=== PATIENT | female | born 1950 | race Caucasian/White ===

== ENCOUNTER 2022-03-04 08:43 | Outpatient (CLI) | payer OTHER, SELFPAY ==
[2022-03-04 14:29] LABS: Albumin* 4.2 g/dL (3.3-5.0); Chloride* 105 mmol/L (96-114); Sodium* 138 mmol/L (135-149)
[2022-03-04 14:32] LABS: Alanine Aminotransferase* 45 U/L (4-35); Alkaline Phosphatase* 65 U/L (40-150); Aspartate Amino Transferase* 40 U/L (12-35); Bilirubin Total* 0.5 mg/dL (0.1-1.5); Blood Urea Nitrogen* 21 mg/dL (7-30); Carbon Dioxide* 29 mmol/L (20-32); Cholesterol* 220 mg/dL (90-199); Creatinine* 0.7 mg/dL (0.5-1.5); Estimated Glomerular Filt Rate 92 ml/min; Glucose* 104 mg/dL (60-115); Total Protein* 7.3 g/dL (6.0-8.3)
[2022-03-04 14:33] LABS: Calcium* 9.5 mg/dL (8.4-10.6); HDL Cholesterol* 94 mg/dL (>=50); LDL Cholesterol Calculated 105 mg/dL (<100); Triglycerides* 106 mg/dL (40-149)
== END 2022-03-04 08:44 | disposition home or self-care (01) ==
PROVIDERS: PCP Emergency Medicine; Visit Provider Emergency Medicine
DX: Z00.00 Encounter for general adult medical examination without abnormal findings (principal); E78.5 Hyperlipidemia, unspecified; I10 Essential (primary) hypertension; M85.80 Other specified disorders of bone density and structure, unspecified site
CPT/HCPCS: 80053; 80061

== ENCOUNTER 2022-05-29 11:08 | Outpatient (CLI) | payer OTHER, SELFPAY ==
[2022-05-29 12:27] LABS: Alanine Aminotransferase* 25 U/L (4-35); Aspartate Amino Transferase* 27 U/L (12-35); Cholesterol* 168 mg/dL (90-199); Triglycerides* 83 mg/dL (40-149)
[2022-05-29 12:28] LABS: HDL Cholesterol* 86 mg/dL (>=50); LDL Cholesterol Calculated 65 mg/dL (<100)
== END 2022-05-29 11:09 | disposition home or self-care (01) ==
PROVIDERS: PCP Emergency Medicine; Visit Provider Emergency Medicine
DX: E78.5 Hyperlipidemia, unspecified (principal)
CPT/HCPCS: 80061; 84450; 84460

== ENCOUNTER 2022-10-13 12:05 | Outpatient (CLI) | payer OTHER, SELFPAY | END 2022-10-13 12:06 | disposition home or self-care (01) | LOC: LKVREF 12:07 | PROVIDERS: PCP Emergency Medicine; Visit Provider Emergency Medicine | DX: Z01.818 Encounter for other preprocedural examination (principal) | CPT/HCPCS: 80048 ==

== ENCOUNTER 2023-02-18 08:42 | Outpatient (CLI) | payer OTHER, SELFPAY | END 2023-02-18 08:43 | disposition home or self-care (01) | PROVIDERS: PCP Emergency Medicine; Visit Provider Emergency Medicine | DX: Z00.00 Encounter for general adult medical examination without abnormal findings (principal); I10 Essential (primary) hypertension; E78.5 Hyperlipidemia, unspecified; M85.9 Disorder of bone density and structure, unspecified; I63.81 Other cerebral infarction due to occlusion or stenosis of small artery | CPT/HCPCS: 80053; 80061; 82306 ==

== ENCOUNTER 2023-03-10 13:18 | Outpatient (CLI) | payer OTHER, SELFPAY ==
--- NOTE | 2023-03-10 13:30 | CRLHL7_ITS ---
For Patients: As a result of the Century Cures Act, medical imaging exams and procedure reports are released immediately into your electronic medical record. You may view this report before your referring provider. If you have questions, please contact your health care provider. DXA BONE MINERAL DENSITY STUDY Reason for exam: Low bone density. Bilateral hip replacement. Current height (in): 66. Weight (lb): 180. Menopause age: 54. Ethnicity: White. 1. Have you had a previous hip or vertebral fracture? No. 2. Have you had any fractures during your adult life which did not result from significant trauma (e.g., auto accident)? Yes. 3. Did either of your parents have a hip fracture? No. 4. Do you smoke? No. 5. Have you ever taken Glucocorticoids? No. 6. Do you have rheumatoid arthritis? No. 7. Do you have secondary osteoporosis? No. 8. Do you drink 3 or more alcoholic drinks per day? No. 9. Are you being treated for osteoporosis? No. 10. Have you ever taken any of the following medications: Actonel, Evista, Fosamax, Miacalcin, Reclast, Boniva, Forteo, HRT (i.e. estrogen/hormone therapy), Protelos, Prolia, Vitamin D, Calcium, other ??? please specify. ANSWER: Yes, vitamin D, calcium. 11. Do you have any of the following medical conditions: Anorexia or bulimia, asthma or emphysema, end stage renal disease, hyperparathyroidism, any seizure disorders, cancer, inflammatory bowel diseases, hysterectomy, other ??? please specify. ANSWER: Yes, hysterectomy. 12. What was your maximum height (inches)? 66. 13. Do you perform weight bearing exercise regularly? No. 14. Do you regularly consume dairy products? Yes. 15. Do you drink caffeinated beverages? Yes. 16. At what age did your period start? 14. 17. Are you premenopausal? No. 18. How many full term pregnancies have you had? 3. 19. Have you ever missed your period for more than 6 months in a row (not including or menopause)? No. TECHNIQUE: Bone mineral density study was performed using the [employer]. FINDINGS: The results of the study expressed as bone mineral density (BMD) are as follows: Lumbar spine L1 to L4: BMD: 0.977 g/cm2. T-score: -0.6. Z-score: 1.6. Radius Left 33%: BMD: 0.721 g/cm2. T-score: 0.4. Z-score: 2.7. Right 33%: BMD: 0.743 g/cm2. T-score: 0.8. Z-score: 3.1. IMPRESSION: Normal bone mineralization of the forearms and lumbar spine are within normal limits. No osteopenia or osteoporosis. *Comparison exams done prior to 12/2019 were performed on different unit, [employer]. Navdeep Moon M.D. Diagnostic/Nuclear Medicine Radiologist [email or web address] ARI/Dictated by: Navdeep Moon MD @ 03/11/2023 8:31:00 AM (Electronically Signed)
--- NOTE | 2023-03-10 14:00 | CRLHL7_ITS ---
For Patients: As a result of the Cures Act, medical imaging exams and procedure reports are released immediately into your electronic medical record. You may view this report before your referring provider. If you have questions, please contact your health care provider. BILATERAL CAROTID ULTRASOUND 03/10/2023 CLINICAL HISTORY: Cerebral infarction, ? occlusion or stenosis. TECHNIQUE: The carotid circulations and the vertebral arteries in the neck were examined with mistry-scale ultrasound, color-flow and Doppler spectral analysis. Degrees of stenosis were determined using SRU 2002 Consensus Panel Criteria. FINDINGS: There is a small amount of plaque in the left carotid bulb. There was antegrade blood flow demonstrated within the vertebral arteries and the subclavian arteries demonstrated a normal triphasic waveform. The spectral Doppler tracings of the common carotid, internal and external carotid arteries demonstrate no abnormal turbulence or spectral broadening. There was no significant elevation of peak systolic blood flow which would indicate a hemodynamically-significant stenosis by NASCET criteria. The ICA/CCA peak systolic velocity ratio measures 0.7 on the right and 0.8 on the left. PEAK SYSTOLIC VELOCITY RIGHT: Subclavian Artery: 178. Distal CCA: 108/31. Mid CCA: 104/24. Prox ICA: 77/27. Mid ICA: 74/27. Dist ICA: 65/21. ICA/CCA Ratio: 0.7. Vertebral Artery: Antegrade, 72/19. LEFT: Subclavian Artery: 108. Distal CCA: 108/32. Mid CCA: 98/26. Prox ICA: 89/26. Mid ICA: 87/31. Dist ICA: 77/19. ICA/CCA Ratio: 0.8 Vertebral Artery: Antegrade, 75/23. IMPRESSION: No hemodynamically significant stenosis in the internal carotid bulbs bilaterally. Marline Johnson M.D. Diagnostic/Breast Radiologist [email or web address] LIDIA/[email or web address] / frederick/Dictated by: Marline Johnson MD @ 03/13/2023 9:10:00 AM (Electronically Signed)
== END 2023-03-10 13:19 | disposition home or self-care (01) ==
PROVIDERS: PCP Emergency Medicine; Visit Provider Emergency Medicine
DX: M85.9 Disorder of bone density and structure, unspecified (principal); I63.81 Other cerebral infarction due to occlusion or stenosis of small artery
CPT/HCPCS: 77080; 93880

== ENCOUNTER 2023-03-11 07:57 | Outpatient (CLI) | payer OTHER, SELFPAY ==
--- NOTE | 2023-03-11 08:15 | CRLHL7_ITS ---
For Patients: As a result of the Century Cures Act, medical imaging exams and procedure reports are released immediately into your electronic medical record. You may view this report before your referring provider. If you have questions, please contact your health care provider. BILATERAL SCREENING MAMMOGRAM WITH COMPUTER-AIDED DETECTION AND TOMOSYNTHESIS TECHNIQUE: CC and MLO views were obtained. These mammographic images have been obtained using full-field digital technique. These mammographic images were interpreted with the benefit of computer-aided detection. Breast Tomosynthesis was used in this interpretation. COMPARISON FILM: 12/23/21, 12/29/19, 12/23/18. FINDINGS: The breasts are heterogeneously dense, which may obscure small masses IMPRESSION: There is no radiographic evidence for malignancy. ASSESSMENT: BI-RADS Category 2: Benign RECOMMENDATION: Routine screening mammogram in 1 year. A lay language report of this examination will be provided to the patient. Navdeep Moon M.D. Diagnostic/Nuclear Medicine Radiologist [email or web address] ARI/Dictated by: Navdeep Moon MD @ 03/11/2023 9:34:00 AM (Electronically Signed)
== END 2023-03-11 07:58 | disposition home or self-care (01) ==
LOC: MAMMO 07:57
PROVIDERS: PCP Emergency Medicine; Visit Provider Emergency Medicine
DX: Z12.31 Encounter for screening mammogram for malignant neoplasm of breast (principal); R92.2 Inconclusive mammogram
CPT/HCPCS: 77063; 77067

== ENCOUNTER 2024-01-05 14:16 | Emergency (ER) | payer OTHER, SELFPAY ==
[2024-01-05] VITALS (13 sets, daily range): BP systolic 109–123; BP diastolic 73–85; PULSE 80–92; RESP 16–18; TEMP 36.4; O2SAT 95–97
--- NOTE | 2024-01-05 14:23 | ED_ITS ---
HPI - General Adult General Time Seen by Provider: 14:28 <Aga Nicholson MD - Last Filed: 01/06/24 08:42> Date Seen: 01/05/24 <Aga Nicholson MD - Last Filed: 01/06/24 08:42> Chief complaint: Unspecified Complaint, Adult <Aga Nicholson MD - Last Filed: 01/06/24 08:42> Stated complaint: Needs K+ infusion-ref from UC <Aga Nicholson MD - Last Filed: 01/06/24 08:42> Time Seen by Provider: 01/05/24 14:22 <Aga Nicholson MD - Last Filed: 01/06/24 08:42> Source: patient and RN notes reviewed <Aga Nicholson MD - Last Filed: 01/06/24 08:42> Mode of arrival: ambulatory <Aga Nicholson MD - Last Filed: 01/06/24 08:42> Limitations: no limitations <Aga Nicholson MD - Last Filed: 01/06/24 08:42> History of Present Illness HPI narrative: This 73-year-old female is coming in with low potassium of 2.7 from urgent care. Her EKG showed 1 PVC, no significant concerning changes per the primary care provider. Patient was coming in with 6 days of illness. She was exposed to her daughter and 2 grand kids who had febrile illnesses about a week prior to hers. She has been sick herself for about 6 days with the 1st 3 days of fevers up to 101 and sweats. She no longer has a fever but is still getting the night sweats. There was no associated runny nose, no sore throat, no cough or cold symptoms, no nausea vomiting or diarrhea. Her appetite was diminished through this. She does take hydrochlorothiazide with other medications for hypertension control admit she has not had a good appetite. She had redness in her right antecubital fossa that started before the illness. It stings. At 1 point there was a little white rupal that she tried picking. Later she noted 2 little medial tiny points in the wound, she worries about these being bite sawant. Bat bite has been brought up to her. At no point has she seen a bat, been in a room with a bat. Today she started noticing red splotches on her skin, they are all over on arms, torso, legs. They are not itchy, they are not painful. With her illness she has had headache, some sense of neck stiffness, low back pain and some generalized body aches. <Aga Nicholson MD - Last Filed: 01/06/24 08:42> Related Data Home medications: Home Medications ?Medication ?Instructions ?Recorded ?Confirmed aspirin 81 mg tablet,delayed 81 mg PO 03/04/22 01/05/24 release bimatoprost 0.01 % eye drops drp ophthalmic (eye) 03/04/22 01/05/24 calcium carbonate 600 mg-vitamin 1 tab PO DAILY 03/04/22 01/05/24 D3 10 mcg (400 unit) tablet cholecalciferol (vitamin D3) 25 25 mcg PO QDAY 03/04/22 01/05/24 mcg (1,000 unit) capsule Previous Rx's ?Medication ?Instructions ?Recorded simvastatin 20 mg tablet 20 mg PO QDAY #90 tabs 02/18/23 trazodone 50 mg tablet 100 mg (2 x 50 mg) PO QHS #180 tabs 02/18/23 lisinopril 10 1 tab PO DAILY #90 tabs 10/26/23 mg-hydrochlorothiazide 12.5 mg tablet doxycycline hyclate 100 mg capsule 100 mg PO BID 10 days #20 caps 01/05/24 <Aga Nicholson MD - Last Filed: 01/06/24 08:42> Allergies/adverse reactions: Allergies Allergy/AdvReac Type Severity Reaction Status Date / Time No Known Allergies Allergy Verified 01/05/24 14:26 <Aga Nicholson MD - Last Filed: 01/06/24 08:42> Review of Systems Status of ROS: Reports: 6 or more systems reviewed and unremarkable except as noted in History and below <Aga Nicholson MD - Last Filed: 01/06/24 08:42> 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 (ICD-10) <Aga Nicholson MD - Last Filed: 01/06/24 08:42> Surgical History: Surgical History Status post total abdominal hysterectomy and bilateral salpingo-oophorectomy ?Z90.710 - Acquired absence of both cervix and uterus (ICD-10) ?Z90.722 - Acquired absence of ovaries, bilateral (ICD-10) ?Z90.79 - Acquired absence of other genital organ(s) (ICD-10) History of right breast biopsy ?Z98.890 - Other specified postprocedural states (ICD-10) History of left knee surgery ?Z98.890 - Other specified postprocedural states (ICD-10) History of left hip replacement ?Z96.642 - Presence of left artificial hip joint (ICD-10) History of abdominoplasty ?Z98.890 - Other specified postprocedural states (ICD-10) <Aga Nicholson MD - Last Filed: 01/06/24 08:42> Family History: Family History Mother Breast cancer Father Coronary artery disease Sister Rheumatoid arthritis ALS (amyotrophic lateral sclerosis) <Aga Nicholson MD - Last Filed: 01/06/24 08:42> Social History: Social History Smoking Status: Former smoker Do you use any of these nicotine containing products: None How often do you have a drink containing alcohol: never How often do you have six or more drinks on one occasion: Never AUDIT-C Alcohol total score: 0 Non-prescribed substance use: denies use Little interest or pleasure in doing things: not at all Feeling down, depressed, or hopeless: several days <Aga Nicholson MD - Last Filed: 01/06/24 08:42> Exam Const: Vital Signs, click to edit/add: Vital Signs - 24 hr 01/05/24 14:19 01/05/24 14:24 01/05/24 15:18 Temperature 97.6 F Pulse Rate Pulse Rate [Pulse Oximeter] 88 Respiratory Rate 16 Respiratory Rate [ Head] 18 Blood Pressure Blood Pressure [Le ft Upper Arm] 122/73 Pulse Oximetry 95 95 Oxygen Delivery Me thod Room Air 01/05/24 15:20 01/05/24 15:30 01/05/24 15:31 Temperature Pulse Rate 84 84 84 Pulse Rate [Pulse Oximeter] Respiratory Rate Respiratory Rate [ Head] Blood Pressure 123/78 Blood Pressure [Le ft Upper Arm] Pulse Oximetry 97 96 97 Oxygen Delivery Me thod 01/05/24 15:32 01/05/24 16:00 01/05/24 16:01 Temperature Pulse Rate 84 80 89 Pulse Rate [Pulse Oximeter] Respiratory Rate Respiratory Rate [ Head] Blood Pressure 122/74 Blood Pressure [Le ft Upper Arm] Pulse Oximetry 96 96 96 Oxygen Delivery Me thod 01/05/24 16:30 01/05/24 16:31 01/05/24 17:00 Temperature Pulse Rate 92 90 86 Pulse Rate [Pulse Oximeter] Respiratory Rate Respiratory Rate [ Head] Blood Pressure 118/85 Blood Pressure [Le ft Upper Arm] Pulse Oximetry 97 97 97 Oxygen Delivery Me thod 01/05/24 17:01 Temperature Pulse Rate 84 Pulse Rate [Pulse Oximeter] Respiratory Rate Respiratory Rate [ Head] Blood Pressure 109/82 Blood Pressure [Le ft Upper Arm] Pulse Oximetry 97 Oxygen Delivery Me thod This 73-year-old female is alert, interactive, no apparent distress. She is ambulatory into the ED of her own accord, did watch her walk back from the bathroom. Gait is normal. Pupils are equal round, sclera clear, conjugate gaze. Face is atraumatic, no rash. Speech is normal, oropharynx with normal mucosa, no exudates, no erythema, no lesions noted. Dentition good repair. Neck is supple, no meningeal signs, has really good range of motion. She has no cervical adenopathy, no thyromegaly masses or nodules. Lungs are clear, good air entry, no wheezing or crackles. CV regular rate and rhythm, no murmur, normal S1-S2, no S3-S4. Abdomen is soft, nontender, nondistended, no organomegaly. She has no lower extremity edema. Skin reveals some smaller pinkish to light erythematous circular areas to areas of a little bit more diffuse splotchy type pinkish areas. Some have a little sense of induration to them, overall there are absolutely no vesicles, no desquamation noted, there is no tenderness. These lesions are small, nothing is probably over 1-2 cm for some of the irregular more splotchy looking ones. In her right antecubital fossa she has sharply demarcated erythematous area, skin is more warm and is erythematous to slight purplish hue. There are no vesicles. She has 2 small maybe 1-2 mm almost linear looking areas about a cm apart on the medial surface of this erythematous area. Do agree that these certainly could represent some type of bite sawant but really are rather nondescript. <Aga Nicholson MD - Last Filed: 01/06/24 08:42> Vital Signs, click to edit/add: Vital Signs - 24 hr 01/05/24 14:19 01/05/24 14:24 01/05/24 15:18 Temperature 97.6 F Pulse Rate Pulse Rate [Pulse Oximeter] 88 Respiratory Rate 16 Respiratory Rate [ Head] 18 Blood Pressure Blood Pressure [Le ft Upper Arm] 122/73 Pulse Oximetry 95 95 Oxygen Delivery [facility] Room Air 01/05/24 15:20 01/05/24 15:30 01/05/24 15:31 Temperature Pulse Rate 84 84 84 Pulse Rate [Pulse Oximeter] Respiratory Rate Respiratory Rate [ Head] Blood Pressure 123/78 Blood Pressure [Le ft Upper Arm] Pulse Oximetry 97 96 97 Oxygen Delivery [facility] 01/05/24 15:32 01/05/24 16:00 01/05/24 16:01 Temperature Pulse Rate 84 80 89 Pulse Rate [Pulse Oximeter] Respiratory Rate Respiratory Rate [ Head] Blood Pressure 122/74 Blood Pressure [Le ft Upper Arm] Pulse Oximetry 96 96 96 Oxygen Delivery [facility] 01/05/24 16:30 01/05/24 16:31 01/05/24 17:00 Temperature Pulse Rate 92 90 86 Pulse Rate [Pulse Oximeter] Respiratory Rate Respiratory Rate [ Head] Blood Pressure 118/85 Blood Pressure [Le ft Upper Arm] Pulse Oximetry 97 97 97 Oxygen Delivery Me thod 01/05/24 17:01 Temperature Pulse Rate 84 Pulse Rate [Pulse Oximeter] Respiratory Rate Respiratory Rate [ Head] Blood Pressure 109/82 Blood Pressure [Le ft Upper Arm] Pulse Oximetry 97 Oxygen Delivery Me thod <Scar Pickard MD - Last Filed: 01/05/24 17:02> Documenting provider has reviewed patient's vital signs: yes <Aga Nicholson MD - Last Filed: 01/06/24 08:42> Course Course ED Course: Will initiate 50 mEq oral potassium, confirm that her potassium is otherwise low. Consider some IV replacement if we do confirm low potassium. She will be on pulse oximetry and cardiac monitoring. Will get liver panel, obtain inflammatory markers. This patient a looks excellent, afebrile here. The right antecubital fossa swelling and erythema has not extended, do wonder if this could have been some sort of bug bite, this notably did preclude her fever. Cellulitis is a consideration. The erythematous nondescript rash that has come on her body certainly supports a viral etiology. There is no petechiae or vascular changes within this rash, just has some mild pinkish changes of the skin. This rash looks to be reminiscent of the viral rashes we frequently see in children. Her white blood count was 7610 with normal differential, normal hemoglobin of 12.4 and normal platelet count of 202,000 today. She had negative COVID influenza RSV and group strep DNA in clinic today. Her glucose was 143, sodium just slightly low at 136, potassium low at 2.7, creatinine normal at 1, bicarb normal at 27, chloride normal at 99 in clinic today. Did discuss rabies immunization and rabies immunoglobulin with patient, she really is not interested in obtaining these injections. There is no evidence in her history that she has been around a bat at all. <gAa Nicholson MD - Last Filed: 01/06/24 08:42> Reevaluation(s) Time of Reevaluation #1: 15:32 <Aga Nicholson MD - Last Filed: 01/06/24 08:42> Reevaluation #1: Potassium has been confirmed to be 2.9. In addition to the oral potassium already ordered, will give her 10 mEq IV potassium. <Aga Nicholson MD - Last Filed: 01/06/24 08:42> Time of Reevaluation #2: 16:02 <Aga Nicholson MD - Last Filed: 01/06/24 08:42> Reevaluation #2: Have reviewed her elevated inflammatory markers and her mild liver enzyme elevation. We do have tick panel and Lyme pending. I do think her symptoms very well may be artist representative of tick-borne pathology. The red area in her right antecubital fossa really should have been expanding and spreading if this were cellulitis. It has remained localized erythema. She had significant nausea when her IV potassium was started, treatment with some Zofran and initiating IV fluids with the IV potassium have greatly helped. She understands that Dr. Pickard will be following up. Plan is to initiate doxycycline on discharge to cover for tick-borne pathology, it will likewise be a good choice for coverage of cellulitis as well. Likely discharge to home with outpatient follow-up with her primary in the [facility]. <Aga Peralta MD - Last Filed: 01/06/24 08:42> Vital Signs Vital signs: Initial Vital Signs Temperature 97.6 F 01/05/24 14:19 Temperature Source Temporal Artery Scan 01/05/24 14:19 Pulse Rate 88 01/05/24 14:19 Pulse Rhythm Regular 01/05/24 14:19 Pulse Strength 3+ Normal 01/05/24 14:19 Respiratory Rate 16 01/05/24 14:19 Blood Pressure 122/73 01/05/24 14:19 Blood Pressure Mean 89 01/05/24 14:19 Blood Pressure Position Sitting 01/05/24 14:19 Pulse Oximetry 95 01/05/24 14:19 Oxygen Delivery Method Room Air 01/05/24 14:19 Vital Signs Temperature 97.6 F 01/05/24 14:19 Pulse Rate 88 01/05/24 14:19 Respiratory Rate 16 01/05/24 14:19 Blood Pressure 122/73 01/05/24 14:19 Pulse Oximetry 95 01/05/24 14:19 Oxygen Delivery Method Room Air 01/05/24 14:19 Temperature 97.6 F 01/05/24 14:19 Pulse Rate 84 01/05/24 17:01 Respiratory Rate 18 01/05/24 15:18 Blood Pressure 109/82 01/05/24 17:01 Pulse Oximetry 97 01/05/24 17:01 Oxygen Delivery Method Room Air 01/05/24 14:19 <Aga Nicholson MD - Last Filed: 01/06/24 08:42> Initial Vital Signs Temperature 97.6 F 01/05/24 14:19 Temperature Source Temporal Artery Scan 01/05/24 14:19 Pulse Rate 88 01/05/24 14:19 Pulse Rhythm Regular 01/05/24 14:19 Pulse Strength 3+ Normal 01/05/24 14:19 Respiratory Rate 16 01/05/24 14:19 Blood Pressure 122/73 01/05/24 14:19 Blood Pressure Mean 89 01/05/24 14:19 Blood Pressure Position Sitting 01/05/24 14:19 Pulse Oximetry 95 01/05/24 14:19 Oxygen Delivery Method Room Air 01/05/24 14:19 Vital Signs Temperature 97.6 F 01/05/24 14:19 Pulse Rate 88 01/05/24 14:19 Respiratory Rate 16 01/05/24 14:19 Blood Pressure 122/73 01/05/24 14:19 Pulse Oximetry 95 01/05/24 14:19 Oxygen Delivery Method Room Air 01/05/24 14:19 Temperature 97.6 F 01/05/24 14:19 Pulse Rate 84 01/05/24 17:01 Respiratory Rate 18 01/05/24 15:18 Blood Pressure 109/82 01/05/24 17:01 Pulse Oximetry 97 01/05/24 17:01 Oxygen Delivery Method Room Air 01/05/24 14:19 <Scar Pickard MD - Last Filed: 01/05/24 17:02> Medications Administered Medications: Discontinued Medications Generic Name Dose Route Start Last Admin Trade Name Freq PRN Reason Stop Dose Admin Potassium Chloride 10 meq in 100 mls @ 100 mls/hr 01/05/24 15:33 01/05/24 16:43 Potassium Chloride IVPB 01/05/24 16:32 Infused ONCE ONE Infusion Sodium Chloride 250 mls @ 250 mls/hr 01/05/24 15:48 01/05/24 16:43 0.9 % Sodium Chloride 250 Ml IV 01/05/24 16:47 Infused .Q1H ONE Infusion Ondansetron HCl 4 mg 01/05/24 15:48 01/05/24 15:55 Ondansetron 2 Mg/Ml Inj IVP 01/05/24 15:49 4 mg ONCE ONE Administration Potassium Bicarbonate 50 meq 01/05/24 14:45 01/05/24 15:00 Potassium Bicarb 25 Meq Effervescent Tab PO 01/05/24 14:46 50 meq ONCE ONE Administration <Aga Nicholson MD - Last Filed: 01/06/24 08:42> Discontinued Medications Generic Name Dose Route Start Last Admin Trade Name Freq PRN Reason Stop Dose Admin Potassium Chloride 10 meq in 100 mls @ 100 mls/hr 01/05/24 15:33 01/05/24 16:43 Potassium Chloride IVPB 01/05/24 16:32 Infused ONCE ONE Infusion Sodium Chloride 250 mls @ 250 mls/hr 01/05/24 15:48 01/05/24 16:43 0.9 % Sodium Chloride 250 Ml IV 01/05/24 16:47 Infused .Q1H ONE Infusion Ondansetron HCl 4 mg 01/05/24 15:48 01/05/24 15:55 Ondansetron 2 Mg/Ml Inj IVP 01/05/24 15:49 4 mg ONCE ONE Administration Potassium Bicarbonate 50 meq 01/05/24 14:45 01/05/24 15:00 Potassium Bicarb 25 Meq Effervescent Tab PO 01/05/24 14:46 50 meq ONCE ONE Administration <Scar Pickard MD - Last Filed: 01/05/24 17:02> Medical Decision Making MDM Narrative Medical decision making narrative: This patient that received fluids along with potassium supplementation. She is okay to be discharged home. A prescription for doxycycline is provided. I advised her regarding signs and symptoms that would indicate a need for return and advised her also to follow-up with her primary physician for recheck. <Scar Pickard MD - Last Filed: 01/05/24 17:02> Lab Data Lab results reviewed: Yes I reviewed the patient's lab results <Aga Nicholson MD - Last Filed: 01/06/24 08:42> Labs: Lab Results 01/05/24 01/05/24 Range/Units 14:55 15:14 ESR 77 H (2-20) mm/hr Sodium 134 L (135-149) mmol/L Potassium 2.9 L* (3.6-5.1) mmol/L Chloride 100 (96-114) mmol/L Carbon Dioxide 26 (20-32) mmol/L Anion Gap 8 (7-15) mEq/L BUN 24 (7-30) mg/dL Creatinine 0.8 (0.5-1.5) mg/dL Estimated Creat Clear 45.09 Estimated GFR 78 ml/min Glucose 115 (60-115) mg/dL Lactate 1.2 (0.5-1.9) mmol/L Calcium 8.8 (8.4-10.6) mg/dL Magnesium 2.5 (1.5-2.6) mg/dL Total Bilirubin 0.5 (0.1-1.5) mg/dL Direct Bilirubin 0.4 (0.0-0.5) mg/dL AST 84 H (12-35) U/L ALT 183 H (4-35) U/L Alkaline Phosphatase 122 (40-150) U/L C-Reactive Protein 16.5 H (0.5-1.0) mg/dL Total Protein 7.1 (6.0-8.3) g/dL Albumin 4.1 (3.3-5.0) g/dL Procalcitonin 0.19 (<0.50) ng/mL Lab Acknowledgement Test Added <Aga Nicholson MD - Last Filed: 01/06/24 08:42> Lab Results 01/05/24 01/05/24 Range/Units 14:55 15:14 ESR 77 H (2-20) mm/hr Sodium 134 L (135-149) mmol/L Potassium 2.9 L* (3.6-5.1) mmol/L Chloride 100 (96-114) mmol/L Carbon Dioxide 26 (20-32) mmol/L Anion Gap 8 (7-15) mEq/L BUN 24 (7-30) mg/dL Creatinine 0.8 (0.5-1.5) mg/dL Estimated Creat Clear 45.09 Estimated GFR 78 ml/min Glucose 115 (60-115) mg/dL Lactate 1.2 (0.5-1.9) mmol/L Calcium 8.8 (8.4-10.6) mg/dL Magnesium 2.5 (1.5-2.6) mg/dL Total Bilirubin 0.5 (0.1-1.5) mg/dL Direct Bilirubin 0.4 (0.0-0.5) mg/dL AST 84 H (12-35) U/L ALT 183 H (4-35) U/L Alkaline Phosphatase 122 (40-150) U/L C-Reactive Protein 16.5 H (0.5-1.0) mg/dL Total Protein 7.1 (6.0-8.3) g/dL Albumin 4.1 (3.3-5.0) g/dL Procalcitonin 0.19 (<0.50) ng/mL Lab Acknowledgement Test Added <Scar Pickard MD - Last Filed: 01/05/24 17:02> Discharge Plan Discharge Clinical Impression: Fever, Acute hypokalemia <Aga Nicholson MD - Last Filed: 01/06/24 08:42> Patient Disposition: Home, Self-Care <Aga Nicholson MD - Last Filed: 01/06/24 08:42> Condition: Stable <Aga Nicholson MD - Last Filed: 01/06/24 08:42> Additional Instructions: Take medication as prescribed. Follow up with MD for recheck as needed or return if worsening. 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
[2024-01-05] MEDS: POTASSIUM BICARB 25 MEQ EFFERVESCENT TAB 50 MEQ PO (15:00)
[2024-01-05 15:29] LABS: Albumin* 4.1 g/dL (3.3-5.0); Chloride* 100 mmol/L (96-114); Creatinine* 0.8 mg/dL (0.5-1.5); Est. Creatinine Clearance* 45.09; Estimated Glomerular Filt Rate 78 ml/min; Sodium* 134 mmol/L (135-149)
[2024-01-05 15:30] LABS: Alanine Aminotransferase* 183 U/L (4-35); Alkaline Phosphatase* 122 U/L (40-150); Anion Gap 8 mEq/L (7-15); Aspartate Amino Transferase* 84 U/L (12-35); Bilirubin Direct* 0.4 mg/dL (0.0-0.5); Bilirubin Total* 0.5 mg/dL (0.1-1.5); Blood Urea Nitrogen* 24 mg/dL (7-30); Calcium* 8.8 mg/dL (8.4-10.6); Carbon Dioxide* 26 mmol/L (20-32); Glucose* 115 mg/dL (60-115); Total Protein* 7.1 g/dL (6.0-8.3)
[2024-01-05 15:31] LABS: Magnesium* 2.5 mg/dL (1.5-2.6)
[2024-01-05 15:32] LABS: Potassium* 2.9 mmol/L (3.6-5.1)
[2024-01-05] MEDS: POTASSIUM CHLORIDE 10 MEQ/100 ML PIGGYBACK 100 MEQ IVPB (15:38)
[2024-01-05 15:45] LABS: C Reactive Protein* 16.5 mg/dL (0.5-1.0)
[2024-01-05 15:47] LABS: Procalcitonin* 0.19 ng/mL (<0.50)
[2024-01-05 15:55] LABS: Erythrocyte SedimentationRate* 77 mm/hr (2-20)
[2024-01-05] MEDS: ONDANSETRON 2 MG/ML inj 4 MG IVP (15:55)
[2024-01-05] MEDS: 0.9 % SODIUM CHLORIDE 250 ml 250 ML IV (15:55)
[2024-01-05 15:59] LABS: Lactate* 1.2 mmol/L (0.5-1.9)
--- NOTE | 2024-01-05 16:19 | ED.NURSE ---
Pt nauseous after start of potassium infusion. notified, pt given zofran and 250ml of sodium chloride with potassium infusion. Pt reports feeling better at this time.
[2024-01-07 16:20] LABS: Lyme ELISA Reflex 0.53 IV (<=0.90)
[2024-01-08 17:02] LABS: Anaplasma phagocyt PCR Not Detected; Babesia microti by PCR Not Detected; Babesia species by PCR Not Detected; Ehrlichia chaffeensis by PCR Not Detected; Ehrlichia ewingii/canis by PCR Not Detected; Ehrlichia muris-like by PCR Not Detected
== END 2024-01-05 17:10 | disposition home or self-care (01) ==
PROVIDERS: Emergency Provider Family Medicine; PCP Emergency Medicine
DX: R50.9 Fever, unspecified (principal); E87.5 Hyperkalemia
CPT/HCPCS: 36415; 80053; 82248; 83605; 83735; 84145; 85651; 86140; 86618; 87468; 87469; 87484; 87798; 94761; 96365; 96375; 99283; 99284; A9270; J2405; J3480; J7050

== ENCOUNTER 2024-01-18 17:45 | Outpatient (CLI) | payer OTHER, SELFPAY | END 2024-01-18 17:46 | disposition home or self-care (01) | PROVIDERS: PCP Emergency Medicine; Visit Provider Emergency Medicine | DX: E87.6 Hypokalemia (principal); R74.01 Elevation of levels of liver transaminase levels | CPT/HCPCS: 80076; 86140 ==

== ENCOUNTER 2024-02-23 08:45 | Outpatient (CLI) | payer OTHER, SELFPAY | END 2024-02-23 08:46 | disposition home or self-care (01) | PROVIDERS: PCP Emergency Medicine; Visit Provider Emergency Medicine | DX: Z00.00 Encounter for general adult medical examination without abnormal findings (principal); R74.01 Elevation of levels of liver transaminase levels; I10 Essential (primary) hypertension; E78.5 Hyperlipidemia, unspecified; Z13.1 Encounter for screening for diabetes mellitus | CPT/HCPCS: 80061; 82947 ==

== ENCOUNTER 2024-05-23 12:21 | Outpatient (CLI) | payer OTHER, SELFPAY ==
--- NOTE | 2024-05-23 13:00 | CRLHL7_ITS ---
For Patients: As a result of the Century Cures Act, medical imaging exams and procedure reports are released immediately into your electronic medical record. You may view this report before your referring provider. If you have questions, please contact your health care provider. BILATERAL SCREENING MAMMOGRAM WITH COMPUTER-AIDED DETECTION AND TOMOSYNTHESIS TECHNIQUE: CC and MLO views were obtained. These mammographic images have been obtained using full-field digital technique. These mammographic images were interpreted with the benefit of computer-aided detection. Breast Tomosynthesis was used in this interpretation. COMPARISON FILM: 03/11/23, 12/23/21, 12/29/19. FINDINGS: The breasts are heterogeneously dense, which may obscure small masses. IMPRESSION: There is no radiographic evidence for malignancy. ASSESSMENT: BI-RADS Category 2: Benign RECOMMENDATION: Routine screening mammogram in 1 year. A lay language report of this examination will be provided to the patient. Edin Quan M.D. Diagnostic Radiologist [email or web address] SP/Dictated by: Edin Quan MD @ 05/29/2024 10:53:00 AM (Electronically Signed)
== END 2024-05-23 12:22 | disposition home or self-care (01) ==
LOC: MAMMO 12:21
PROVIDERS: PCP Emergency Medicine; Visit Provider Emergency Medicine
DX: Z12.31 Encounter for screening mammogram for malignant neoplasm of breast (principal); R92.333 Mammographic heterogeneous density, bilateral breasts
CPT/HCPCS: 77063; 77067

== ENCOUNTER 2024-06-02 09:32 | Outpatient (CLI) | payer OTHER, SELFPAY ==
--- NOTE | 2024-06-02 10:15 | CRLHL7_ITS ---
For Patients: As a result of the 21st Century Cures Act, medical imaging exams and procedure reports are released immediately into your electronic medical record. You may view this report before your referring provider. If you have questions, please contact your health care provider. EXAM: MRI OF THE RIGHT SHOULDER WITHOUT CONTRAST CLINICAL INDICATION: Right shoulder pain. COMPARISON PLAIN FILMS: None available at time of interpretation. COMPARISON CROSS-SECTIONAL IMAGING STUDIES: None available at time of interpretation. TECHNICAL: Axial, sagittal oblique and coronal oblique T1, PD, PD FS and T2-weighted images. Shoulder surface coil. FINDINGS: ROTATOR CUFF TENDONS AND MUSCLES AND DELTOID: Supraspinatus: Irregular high-grade partial-thickness bursal surface tear of the distal supraspinatus tendon measures 1.0 cm RL x 1.1 cm AP. The tear accounts for greater than half of the tendon width. Diffuse increased signal in the supraspinatus tendon consistent with moderate tendinopathy. No muscle atrophy edema. Infraspinatus: No tendinosis, tendon tearing, muscle atrophy or muscle edema. Subscapularis: No tendinosis, tendon tearing, muscle atrophy or muscle edema. Teres Minor: No tendinosis, tendon tearing, muscle atrophy or muscle edema. Deltoid: No muscle atrophy or edema. BURSA: Subacromial-subdeltoid: Moderate amount of fluid in the subacromial subdeltoid bursa. BICEPS TENDON, LONG HEAD: The long head of the biceps tendon is appropriately positioned within the bicipital groove without tendon subluxation or dislocation. The biceps xochitl mechanism is intact. The biceps anchor appears grossly intact. There is no significant tendinosis or tendon tearing. CORACOACROMIAL ARCH: Acromial Morphology: Type 2 acromial morphology. Mild lateral downsloping of the acromion. Small broad subacromial enthesophyte. No os acromiale. Acromiohumeral Interval: Normal. Coracohumeral Interval: Normal. ACROMIOCLAVICULAR JOINT REGION: AC Joint: Moderate arthropathy. Small inferior marginal osteophytes. Ligaments: The coracoclavicular ligaments are intact. GLENOHUMERAL JOINT: Joint space: Small glenohumeral joint effusion. No synovitis or loose body. Humeral Head Articular Cartilage: No focal cartilage defect or underlying subchondral marrow changes. Glenoid Articular Cartilage: Moderate chondral fissuring inferiorly in the glenoid with a small amount of subchondral edema. Labrum: No labral tear or paralabral cyst. Alignment: Maintained. Capsule: No capsular edema or abnormal capsular thickening. OSSEOUS STRUCTURES: No fracture, marrow edema or marrow replacement process. OTHER FINDINGS: There is no abnormality within the suprascapular or spinoglenoid notches nor within the quadrilateral space. No axillary adenopathy or mass. IMPRESSION: 1. High-grade partial-thickness bursal surface tear of the distal supraspinatus tendon. Moderate tendinopathy. 2. Moderate amount of fluid in the subacromial subdeltoid bursa. 3. Mild lateral downsloping of the acromion and small subacromial enthesophyte. 4. Moderate arthropathy in the acromioclavicular joint. 5. Focal moderate glenoid chondromalacia. 6. Small glenohumeral joint effusion. Dictated by Tommy Malloy MD @ 06/02/2024 12:25:59 PM (Electronically Signed)
== END 2024-06-02 09:33 | disposition home or self-care (01) ==
LOC: MRI 09:32
PROVIDERS: PCP Emergency Medicine; Visit Provider Emergency Medicine
DX: M25.511 Pain in right shoulder (principal); M75.102 Unspecified rotator cuff tear or rupture of left shoulder, not specified as traumatic; M94.212 Chondromalacia, left shoulder; M25.412 Effusion, left shoulder
CPT/HCPCS: 73221

== ENCOUNTER 2025-02-14 08:35 | Outpatient (CLI) | payer OTHER, SELFPAY | END 2025-02-14 08:36 | disposition home or self-care (01) | PROVIDERS: Visit Provider Emergency Medicine | DX: E78.2 Mixed hyperlipidemia (principal); I10 Essential (primary) hypertension; I63.81 Other cerebral infarction due to occlusion or stenosis of small artery | CPT/HCPCS: 80053; 80061 ==

== ENCOUNTER 2025-03-30 09:58 | Emergency (ER) | payer OTHER, SELFPAY ==
--- OUTSIDE RECORDS SUMMARY | 2025-03-09 11:00 | XMS_ITS | Encounter Summary ---
Author Organization [facility] Address [address] [place] [address] Care Team Providers Care Strategy Analyst Name Role Phone Unavailable Primary Care Provider Unavailabl e Reason for Referral * Outpatient (Routine) - Authorized Specialty Diagnoses / Procedures Referred By Contact Referred To Contact Physical Medicine and Rehabilitation Roly Saenz D.O. [address] [place] [phone] Phone: tel: fax: [facility] Referral ID Status Reason Start Date Expiration Date V isits Requested Visits Authorized [id number] Authorized 03/09/2025 09/08/2026 1 1 * Physical Therapy (Routine) - Closed Specialty Diagnoses / Procedures Referred By Contac t Referred To Contact Diagnoses Primary Osteoarthritis Lumbar Spine Pain Low Back Chronic Other Idiopathic Scoliosis Lumbar Region Procedures PT Evaluate and treat Roly Saenz D.O. [address] [place] [phone] Phone: tel: fax: [facility] Region Referral ID Status Reason Start Date Expiration Date Visits Re quested Visits Authorized [id number] Closed 03/09/2025 06/09/2026 1 1 Reason for Visit * Reason Comments Back Pain Low Leg Pain Right - numbness whe n standing for long periods * Appointment Request (Routine) - Closed Specialty Diagnoses / Procedures Referred By Contac t Referred To Contact Neurological Surgery Referral ID Status Reason Start Date Expiration Date Visits Re quested Visits Authorized [id number] Closed 03/05/2025 06/05/2026 1 1 Encounter Details Date Type Department Care Team (Latest Contact Info) Description 03/09/2025 11:00 AM CDT Comprehensive Visit Department of Physical Medicine and Rehabilitation in [place], [place] [address] [place] [phone] Roly Saenz D.O. [facility] [place] [phone] Primary Osteoarthritis Lumbar Spine (Primary Dx); Pain Low Back Chronic; Other Idiopathic Scoliosis Lumbar Region Discharge Disposition: Home or Self Care Social History Tobacco Use Types Packs/Day Years Used Date Smoking Tobacco: Former Cigarettes 10 10.6 1 - 11/24/1978 Smokeless Tobacco: Never Comments:Quit smoking 46 yea rs ago. None since Hunger Vital Sign Answer Date Recorded Within the past 12 months, y ou worried that your food would run out before you got the money to buy more. Never true 03/09/20 25 Within the past 12 months, t he food you bought just didn't last and you didn't have money to get more. Never true 03/09/2025 PRAPARE - Transportation Answer Date Re corded In the past 12 months, has l ack of transportation kept you from medical appointments or from getting medications? No 02/17 In the past 12 months, has l ack of transportation kept you from meetings, work, or from getting things needed for daily living? No 03/09/2025 [facility] Utilities Answer Date Recorded In the past 12 months has [employer] electric, gas, oil, or water [employer] threatened to shut off services in your home? No 03/09/2025 Housing Stability Answer Date Recorded What is your living situation today? I have a [facility] place to live 03/09/2025 Comments Unknown Sex and Gender Information Value Date Recorded Sex Assigned at Female 03/09/2025 7:01 AM CDT Legal Sex Female 11:28 AM CDT Gender Identity Female 03/09/2025 7:01 AM CDT Sexual Orientation Straight 03/09/2025 7: 01 AM CDT documented as of this encounter Consult Notes * Roly Saenz D.O. - 03/09/2025 11:00 AM CDT The patient verbally consented to an audio recording of their visit to assist with the completion of documentation. SUBJECTIVE REFERRAL SOURCE No ref. provider found CHIEF COMPLAINT/REASON FOR VISIT right tvnss-nyregtw-asls-left low back pain and right leg numbness HISTORY OF PRESENT ILLNESS History of Present Illness Anamaria Renteria is a 74 year old female who presents with low back pain and intermittent leg numbness. She has been experiencing low back pain for an unspecified duration, initially seeking treatment from a chiropractor. X-rays revealed a spinal curvature, and she began treatments involving decompression and strengthening exercises. However, she discontinued these treatments due to insurance not covering the occupational therapy costs and attempted to perform exercises at home. The low back pain is described as aching, primarily affecting both sides but more pronounced on the right. It is exacerbated by certain positions such as sitting down, getting out of bed, and driving. The pain is also bothersome in the morning and is associated with stiffness. She has used Tylenol and Advil for pain relief and finds heat application helpful. She has not tried physical therapy, massage, or acupuncture. In addition to back pain, she experiences intermittent numbness in her leg, particularly after standing still for 5-10 minutes. This numbness has been occurring for approximately five years and is described as worsening. The numbness resolves upon walking and is not associated with pain or tingling. No weakness, balance issues, or bowel and bladder control problems. Her social history includes a previous routine of walking four miles a day, which she has reduced due to her symptoms. She has two artificial hips and has been avoiding Advil and Tylenol due to elevated liver enzymes. CURRENT MEDICATIONS Current Medications[1] ALLERGIES/CONTRAINDICATIONS Allergies[2] MEDICAL HISTORY Medical History[3] SURGICAL HISTORY Surgical History[4] SOCIAL HISTORY Social History Socioeconomic History Marital status: Spouse name: Not on file Number of children: Not on file Years of education: Not on file Highest education level: Not on file Occupational History Not on file Tobacco Use Smoking status: Former Current packs/day: 0.00 Average packs/day: 10.0 packs/day for 10.6 years (105.8 ttl pk-yrs) Types: Cigarettes Start date: 04/27/1968 Quit date: 11/24/1978 Years since quittin.3 Smokeless tobacco: Never Tobacco comments: Quit smoking 46 years ago. None since Substance and Sexual Activity Alcohol use: Not on file Drug use: Never Sexual activity: Not Currently Partners: Male control/protection: None Other Topics Concern Not on file Social History Narrative Not on file Social Drivers of Health Food Insecurity: No Food Insecurity (03/09/2025) Hunger Vital Sign Worried About Running Out of Food in the Last Year: Never true Ran Out of Food in the Last Year: Never true Transportation Needs: No Transportation Needs (03/09/2025) PRAPARE - Transportation Lack of Transportation (Medical): No Lack of Transportation (Non-Medical): No Intimate Partner Violence: Not on file Housing Stability: Low Risk (03/09/2025) Housing Stability Housing: Living Situation: I have a steady place to live FAMILY HISTORY Family History[5] Fall Risk Have you fallen within the last year or do you fear you might fall?: No Do you use an assisted device to walk? (Walker, cane, wheelchair, crutch): No Today, do you feel any of the following? Weak, dizzy, shaky, or unsteady?: No Have you taken any medication within the last 6 hours which may make you feel drowsy? Such as sleep, pain, or anxiety medication: No REVIEW OF SYSTEMS Except for those mentioned in the history of present illness, and below, a complete review of systems is negative. All other systems reviewed and are negative. OBJECTIVE VITAL SIGNS There were no vitals filed for this visit. PHYSICAL EXAMINATION General: Awake, alert, and oriented, no apparent distress, pleasant, and cooperative Psych: Mood is euthymic, affect is congruent Ear, Nose, Throat: Normocephalic, atraumatic, moist membranes, anicteric sclerae Lung: Nonlabored breathing Heart: No clubbing or cyanosis Skin: No increased erythema, warmth, rashes, or concerning skin lesions Neuro: Strength is grossly 5 out of 5 throughout the bilateral lower extremities. Reflexes are 1+ and symmetric bilaterally at the patella and Achilles tendons. Plantar responses are downgoing bilaterally. 1-2 beats of ankle clonus at the ankles bilaterally. Straight leg raise and seated slump test negative bilaterally. Gait: Non-antalgic gait. Can heel and toe walk without difficulty. No myelopathic features. Spine: Lumbar spine range of motion is full in flexion and pain-free. Lumbar extension to less than5?? with increased axial low back pain. Tenderness to palpation at the level of right lumbar paraspinals from approximately L3 to the PSIS. There is also tenderness at midline over the lumbosacral junction. No tenderness to palpation over the spinous processes. Facet loading maneuvers are positive bilaterally, to the ptvi-emaxnzi-hkso-right. Musculoskeletal: Bilateral hip range of motion is full and pain-free. Rian's is negative bilaterally. Stinchfield is negative bilaterally. DIAGNOSTICS X-Ray of the lumbar spine from an outside facility unable to be uploaded to the system but on review there is a lumbar dextroscoliosis with thoracic compensatory levoscoliosis. This appears less than10?? in the lumbar spine. There is significant degenerative disc and facet disease throughout the spine most advanced at L4-5 and L5-S1 on the right. I personally reviewed these images and agree with the radiology report and shared the findings withthe patient. ASSESSMENT / PLAN Diagnosis Plan 1. Primary Osteoarthritis Lumbar Spine PT Evaluate and treat 2. Pain Low Back Chronic PT Evaluate and treat 3. Other Idiopathic Scoliosis Lumbar Region PT Evaluate and treat Assessment & Plan Low back pain with dextroscoliosis and arthritis Chronic low back pain with dextroscoliosis and significant arthritis at L4-5 and L5-S1. Pain likelydue to arthritis and degenerative disc disease. Scoliosis may contribute but is not primary. No bowel or bladder dysfunction, no significant nerve damage. - Refer to physical therapy in [place] for spine-focused strengthening and stabilization program. - Advise continuation of home exercises learned from chiropractor. - Avoid use of back braces to prevent muscle weakening. - Discuss radiofrequency ablation if pain becomes intolerable or is not improving with therapy. - Advise against daily use of NSAIDs due to potential liver and kidney effects. Degenerative disc disease Degenerative disc disease noted on imaging, common with aging. Contributes to low back pain but notprimary source. Exercise emphasized to offload pressure from discs. - Emphasize importance of exercise to offload pressure from discs. Intermittent leg numbness Intermittent numbness in leg after prolonged standing, resolving with movement. Likely due to dynamic nerve compression from muscle fatigue and narrowing of neuroforamen, possibly at L5-S1. No likelynerve damage as neuro exam is completely intact today. MRI not necessary unless symptoms worsen or become constant. - Monitor symptoms and consider MRI if symptoms worsen or become constant. Follow-up Assess progress with physical therapy and symptom management. - Schedule follow-up appointment in 2-3 months. - Provided contact information for questions or concerns before follow-up. The patient was counseled to remain active, but avoid activities that worsen symptoms. The patient was in agreement with this plan. All questions were answered to the best of my ability. Thank you for allowing me to take part in the care of this patient. [1] Current Outpatient Medications: acetaminophen (TylenoL) 500 mg tablet, Take 1,000 mg by mouth., Disp: , Rfl: aspirin [address] tablet, Take 81 mg by mouth., Disp: , Rfl: atorvastatin (Lipitor) 40 mg tablet, , Disp: , Rfl: B complex-vitamin C (Superplex-T) per tablet, Take 1 tablet by mouth daily., Disp: , Rfl: bimatoprost (Lumigan) 0.01 % ophthalmic drops, Administer 1 drop into both eyes at bedtime., Disp: , Rfl: calcium carbonate (Tums) 500 mg (200 mg calcium) chewable tablet, Chew 500 mg., Disp: , Rfl: calcium carbonate 1,500 mg (600 mg calcium) tablet, Take 600 mg of calcium by mouth daily., Disp: ,Rfl: cholecalciferol, vitamin D3, 25 mcg (1,000 Unit) tablet, Take 25 mcg by mouth., Disp: , Rfl: lisinopril-hydroCHLOROthiazide 10-12.5 mg per tablet, Take 1 tablet by mouth daily., Disp: , Rfl: traZODone (DesyreL) 100 mg tablet, Take 100 mg by mouth., Disp: , Rfl: [2] No Known Allergies [3] Past Medical History: Diagnosis Date Dyslipidemia NOS 2010 Hypertension NOS Transient Ischemic Attack Personal History Or Stroke Personal History 2018 [4] No past surgical history on file. [5] No family history on file. documented in this encounter Plan of Treatment Upcoming Encounters Date Type Department Care Team (Latest Contact Info) Description 04/02/2025 10:30 AM CDT Clinical Support Department of Rehabilitation Services in [address] [phone] Roly Saenz D.O. [address] [place] [phone] Annie Braragan P.T., D.P.T. 05/25/2025 9:00 AM DIRECTOR OF PEDIATRIC REHABILITATION Comprehensive Visit Department of Physical Medicine and Rehabilitation in [place], [place] [address] [place] [phone] Roly Saenz D.O. [address] [place] [phone] Discharge Disposition: Home or Self Care Scheduled Referrals Name Type Priority Associated Diagnoses Order Schedule Physical Medicine and Rehabilitation office visit (clinic) Outpatient Referral Routine Expected: 05/18/2025, Expires: 06/09/2026 documented as of this encounter Visit Diagnoses Diagnosis Primary Osteoarthritis Lumbar Spine- Primary Pain Low Back Chronic Other Idiopathic Scoliosis Lumbar Region documented in this encounter
--- OUTSIDE RECORDS SUMMARY | 2025-03-15 09:30 | XMS_ITS | Encounter Summary ---
Author Organization [facility] Address [address] [place] [address] Care Team Providers Care Fuse Assembler Name Role Phone Unavailable Primary Care Provider Unavailabl e Reason for Referral * Physical Therapy (Routine) - Authorized Specialty Diagnoses / Procedures Referred By Contac t Referred To Contact Diagnoses Primary Osteoarthritis Lumbar Spine Pain Low Back Chronic Other Idiopathic Scoliosis Lumbar Region Procedures PT Ongoing treatment Roly Saenz D.O. [address] [place] [phone] Phone: tel: fax: [facility] Region Referral ID Status Reason Start Date Expiration Date V isits Requested Visits Authorized [id number] Authorized 03/15/2025 07/18/2025 20 20 Reason for Visit * Physical Therapy (Routine) - Closed Specialty Diagnoses / Procedures Referred By Contac t Referred To Contact Diagnoses Primary Osteoarthritis Lumbar Spine Pain Low Back Chronic Other Idiopathic Scoliosis Lumbar Region Procedures PT Evaluate and treat Roly Saenz D.O. [address] [place] [phone] Phone: tel: fax: [facility] Region Referral ID Status Reason Start Date Expiration Date Visits Re quested Visits Authorized [id number] Closed 03/09/2025 06/09/2026 1 1 Encounter Details Date Type Department Care Team (Latest Contact Info) Description 03/15/2025 9:30 AM CDT Comprehensive Visit Department of Rehabilitation Services in [address] [phone] Roly Saenz D.O. [address] [place] [address] Annie Barragan P.T., D.P.T. Primary Osteoarthritis Lumbar Spine; Pain Low Back Chronic; Other Idiopathic Scoliosis Lumbar Region Social History Tobacco Use Types Packs/Day Years [...] things needed for daily living? No 03/09/2025 [facility] Utilities Answer Date Recorded In the past 12 months has e electric, gas, oil, or water company threatened to shut off services in your home? No 03/09/2025 Housing Stability Answer Date Recorded What is your living situation today? I have a [facility] place to live 03/09/2025 Comments Unknown Sex and Gender Information Value Date Recorded Sex Assigned at Female 03/09/2025 7:01 AM CDT Legal Sex Female 11:28 AM CDT Gender Identity Female 03/09/2025 7:01 AM CDT Sexual Orientation Straight 03/09/2025 7: 01 AM CDT documented as of this encounter Consult Notes * Annie Barragan P.T., D.P.T. - 03/15/2025 9:30 AM CDT Physical Therapy Outpatient Evaluation/Treatment By co-signing this note, the provider certifies the therapy being provided to this patient is reasonable and necessary for the diagnosis or treatment of this patient. SUBJECTIVE Patient's Name: Anamaria Renteria Referring Provider: Roly Saenz D.O. Visit Diagnosis: 1. Primary Osteoarthritis Lumbar Spine 2. Pain Low Back Chronic 3. Other Idiopathic Scoliosis Lumbar Region Reason for Referral: PT eval and treatment Onset Date: 03/09/25 Payor: [employer] / Plan: vushaper PPO / Product Type: PPO / Epic Visit Count: 1 PERTINENT MEDICAL / SURGICAL HISTORY: Problem List[1] Surgical History[2] Patient presents to outpatient physical therapy for evaluation of symptoms including: Low back pain Overall patient reports status is worsening . History of Present Illness:Patient was referred to therapy with R>L low back pain. She also experiences RLE numbness. This has been going on for the last 5 years roughly, but has progressively worsened. She previously walked 4 miles a day, but stopped when she moved to [place]. 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 She has been more sendentary in the last several years, and now walks 1-2 miles, several times per week. 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 Previously walked up to 4 miles a day. More recently, she walks 1-2 miles with her Patient goals: Decrease pain in low back, walk 4 miles a day, decrease numbness in right lower extremity OBJECTIVE REVIEW OF SYSTEMS History obtained from chart review PHYSICAL EXAM Pain: Achy pain on right > left low back Patient presents with FOTO functional status score of 55 (MCII: 3 and MDC: 6) indicating general function at stage 3. The risk adjusted functional status score is 48. Patient is predicted to have 11 points of functional status change in 10 visits over 51 days based on normative data. Ambulation: ambulates without assistive device independently without antalgia Trunk range of motion: Flexion: 4 inches from floor Extension: 50% limited Side bending: R: -2; L: -3 Rotation: R: 100% motion; L: 75% motion Heel/toe walking: Able to perform Seated Myotomes: Hip Flexion: R: 4+/5; L: 4+/5 Hip Abduction: R: 5/5; L: 5/5 Hip Adduction: R: 5/5; L: 5/5 Knee Flexion: R: 5/5; L: 5/5 Knee Extension: R: 5/5; L: 5/5 Ankle DF: R: 5/5; L: 5/5 Ankle PF: R: 5/5; L: 5/5 LIFE CLAIMS EXAMINER: HS: R: -15; L: -20 Quad: R: positive for tightness; L: positive for tightness Calf: R: 15 degrees; L: 15 degrees Piriformis: R: does not cross midline; L: does not cross midline TREATMENT Treatment today consisted of: Therapeutic Exercise: -Spent a great deal of time reviewing patients home exercises Home Exercise Program/Education: Access Code: [email or web address] URL: [email or web address] Date: 03/15/2025 Prepared by: JOSEFINA [place] Exercises - Supine Lower Trunk Rotation - 2 x daily - 10 reps - 10 hold - Supine Figure 4 Piriformis Stretch - 2 x daily - 2 reps - 30 hold - Modified Gonzalo Stretch - 2 x daily - 2 reps - 30 hold - Seated Hamstring Stretch - 2 x daily - 2 reps - 30 hold - Modified Cat Cow on Counter - 2 x daily - 10 reps - Sink Lumbar Distraction - 2 x daily - 10 reps - 10 seconds Assessment Clinical Impression: Patient presents to physical therapy with signs and symptoms consistent with low back pain. 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 Comorbid Conditions: Other (Comment) (Refer to EMR) Clinical Presentation: Stable Examination elements: 4+ Clinical Decision Making: Low complexity clinical decision making Functional Goals and Timeframes: PT Outpatient Goals PT Goal #1: Patient will improve piriformis LIFE CLAIMS EXAMINER to cross midline bilaterally in order to improve flexibility and decrease pain PT Goal #1 to be achieved by: 05/15/25 PT Goal #2: Patient will be compliant and independent with home exercises in order to progress toward PLOF PT Goal #2 to be achieved by: 04/15/25 PT Goal #3: Patient will return to walking up to 4 miles a day, 5x/week with less than 2/10 pain inorder to return to previously active lifestyle PT Goal #3 to be achieved by: 04/15/25 Plan Patient was educated regarding evaluative findings, diagnosis, prognosis, potential risks and benefits of rehabilitation interventions. A collaborative effort was used to establish goals and plan of care. The patient was informed of the right to make decisions regarding care, including refusal of examination or treatment or selection of services from another provider if desired. The treatment plan may be progressed or modified based upon the patient's response to treatment. Physical Therapy Attestation Statement: Patient agrees with the plan of care and goals. Treatment Plan: Plan: Plan of care initiated Start of Plan of Care: 03/15/2025 PT Next Certification Date: 06/15/25 Number of Visits:10 visits PT Duration: 90 days PT Frequency: PT Frequency: (1 visit every 1-2 weeks) Treatment interventions may include: Treatment/Interventions: Therapeutic exercise, Therapeutic functional activity, Manual therapy, Neuromuscular re-education, Gait training, Therapeutic modalities as needed Plan for next session: Review patients home exercises Time Spent with Patient Evaluations PT Eval - Low Complexity: 30 min Therapeutic Interventions Therapeutic Exercise (min): 15 min Time Tracking Total Timed Units (min): 15 min Total Treatment Time (min): 45 min [1] There is no problem list on file for this patient. [2] No past surgical history on file. Cosigned by Roly Saenz D.O. at 03/15/2025 4:14 PM CDT documented in this encounter Plan of Treatment Upcoming Encounters Date Type Department Care Team (Latest Contact Info) Description 04/02/2025 10:30 AM CDT Clinical Support Department of Rehabilitation Services in [address] [phone] Roly Saenz D.O. [facility] [place] [phone] Annie Barragan P.T., D.P.TVipul 05/25/2025 9:00 AM HALF BACKER Comprehensive Visit Department of Physical Medicine and Rehabilitation in [place], [place] [address] [place] [phone] Roly Saenz D.O. [facility] [place] [phone] Discharge Disposition: Home or Self Care documented as of this encounter Visit Diagnoses Diagnosis Primary Osteoarthritis Lumbar Spine Pain Low Back Chronic Other Idiopathic Scoliosis Lumbar Region documented in this encounter
--- OUTSIDE RECORDS SUMMARY | 2025-03-30 10:02 | XMS_ITS | Patient Health Record ---
Author Organization [facility] Address [address] [place] [address] GEOFFREY MACIEL [phone] Support Name Relationship Address Phone KELLY WAGNER Emergency Contact [address] [facility] [address] [place] GEOFFREY EATON [id number] DHRUV WAGNER Guarantor Unknown [phone] Medications Medication SIG (Take, Route, Fr equency, Duration) Notes Start Date End Date Status traZODone HCl 50 MG Orally 0 Active Atenolol 50 MG Orally Act anh Aspirin 81 MG Orally Acti ve Estradiol 0.5 MG Orally A ctive Problems Problem Type SNOMED Code ICD Code Onset Dates Problem Status W/U Status Risk Notes Problem Mammographic microcalcification of breast (10319382952759) Mamm microcalcification (793.81) Active confirmed Plan Of Treatment No Information Insurance Providers Payer Name Payer Address Payer Phone Subscriber Number Group Number Insured Name Patient Relationship to Insured Coverage Start Date Coverage End Date MED[employer] CHOICE/P [place] [address] [address] [place], [place] [id number] KELLY WAGNER Spouse - patient is the spouse of the insured Medical (General) History Medical History History ICD Code osteopenia hypertension symptomatic menopause insomnia history of atypical jaw pain with exerti on Surgical History Surgery Date(Month/Year) left hip replacement abdominal hysterectomy with BSO for chloe gn reasons abdominoplasty ORIF left patella fracture Hospitalization History Reason Date(Month/Year) Childbirth x 3
--- OUTSIDE RECORDS SUMMARY | 2025-03-30 10:02 | XMS_ITS ---
Author Organization [facility] Address [address] [place] [address] Care Team Providers Care Program Writer Name Role Phone Unavailable Primary Care Provider Unavailabl e [facility] Program Status:Enrolled (Active) Start date:03/08/2025 Enrollment date:03/08/2025 Current support & services provided:Tier 2 - Specialty Care Consults Case Team Name Relationship Phone Sheri Varner R.N.(Responsible Staff) Bud ed Nurse [phone] Continued Care and Services Coordination
--- OUTSIDE RECORDS SUMMARY | 2025-03-30 10:02 | XMS_ITS | Encounter Summary ---
Author Organization [facility] Address [address] [place] [address] Care Team Providers Care Remedy Developer Name Role Phone Unavailable Primary Care Provider Unavailabl e Reason for Visit * Reason Onset Date Comments Referral 03/06/2025 Spine triage Encounter Details Date Type Department Care Team (Latest Contact Info) Description 03/06/2025 Clinical Communication Department of Physical Medicine and Rehabilitation in [address] [address] Sheri Varner R.N. Referral (Spine triage ) Social History Tobacco Use Types Packs/Day Years Used Date Smoking Tobacco: Never Assessed Hunger Vital Sign Answer Date Recorded Within [...] things needed for daily living? No 03/09/2025 [facility] Utilities Answer Date Recorded In the past 12 months has th e electric, gas, oil, or water company threatened to shut off services in your home? No 03/09/2025 Housing Stability Answer Date Recorded What is your living situation today? I have a [facility] place to live 03/09/2025 Comments Unknown Sex and Gender Information Value Date Recorded Sex Assigned at Female 03/09/2025 7:01 AM CDT Legal Sex Female 11:28 AM CDT Gender Identity Female 03/09/2025 7:01 AM CDT Sexual Orientation Straight 03/09/2025 7: 01 AM CDT documented as of this encounter Miscellaneous Notes * Telephone Encounter - Sheri Varner R.N. - 03/07/2025 10:26 AM CDT No imaging as of 03/07/25. * Telephone Encounter - Sheri Varner R.N. - 03/06/2025 10:34 AM CDT Spoke with patient. She has only seen a chiropractor for her back pain. They did x-rays and said she has scoliosis. She would like to see a Ebd Teacher. She will contact chiropractor to have imaging sent. documented in this encounter Plan of Treatment Upcoming Encounters Date Type Department Care Team (Latest Contact Info) Description 04/02/2025 10:30 AM CDT Clinical Support Department of Rehabilitation Services in [address] [address] Roly Saenz D.OVipul [address] [place] [phone] Annie Barragan P.T., D.P.T. 05/25/2025 9:00 AM NETWORK RELAY TESTER Comprehensive Visit Department of Physical Medicine and Rehabilitation in [place], [place] [address] [place] [phone] Roly Saenz D.OVipul [address] [place] [phone] Discharge Disposition: Home or Self Care documented as of this encounter Visit Diagnoses Not on filedocumented in this encounter
--- OUTSIDE RECORDS SUMMARY | 2025-03-30 10:02 | XMS_ITS | Patient Health Record ---
Author Organization [facility] Address [address] [place] [address] Care Team Providers Care Pin Sticker Name Role Phone Pat Herrmann Primary Care Provider JEANNINE Rucker [phone] Allergies No Known Allergies Reason For Referral No Information Medications Medication SIG (Take, Route, Frequency, Duration) Notes Start Date End Date Status Lisinopril Active Simvastatin 20 MG Tablet 1 tablet in the evening Orally Once a day Active Lisinopril-hydroCHLOROthiaz hunter 10-12.5 MG Tablet 1 tablet Orally Once a day Active Vitamin B Complex Ac tive Social History Tobacco Use: Social History Observation Description Date Details (start date - stop date) Never Smoker NA - NA Social History : Social Info Question Answer Notes How often do you consume alcohol? Answer: less than 6 per week Drug/Alcohol: Social Info Question Answer Notes AUDIT-C (Standard) Did you have a drink containing alcohol in the past year? Yes How often did you have six or more drinks on one occasion in the past year? 2 to 4 times a month (2 points) How many drinks did you have on a typical day when you were drinking in the past year? 1 or 2 drinks (0 point) How often did you have a drink containing alcohol in the past year? Never (0 point) Points 2 Interpretation Negative Recreational drug use Social Info Question Answer Notes Did you ever use recreational drugs? Answer: No Tobacco Use: Social Info Question Answer Notes Tobacco use/smoking Are you a nonsmoker Additional Findings: Tobacco Non-User Current no n-smoker Additional Details Category Social Info Options Details Sleep Apnea Do you have sleep apnea? No Have you undergone a formal sleep study? No Problems Problem Type SNOMED Code ICD Code Onset Dates Problem Status W/U Status Risk Notes Problem Impacted cerumen (30289864) Impacted cerumen, bilateral (H61.23) Active confirmed Problem Sensorineural hearing loss, bilateral (664023744) Bilateral sensorineural hearing loss (H90.3) Active confirmed Problem Tinnitus of left ear (6008788646884) Tinnitus, left (H93.12) Active confirmed Plan Of Treatment No Information Insurance Providers Payer Name Payer Address Payer Phone Subscriber Number Group Number Insured Name Patient Relationship to Insured Coverage Start Date Coverage End Date [employer] Medicare Advantage MEDM1 [address] [address] [place] [address] [phone] [id number] Anamaria Renteria Self - patient is the insured MEDICARE [address] [place] [phone] [id number] Anamaria Renteria Self - patient is the insured Medical (General) History Medical History History ICD Code HTN CVA Surgical History Surgery Date(Month/Year) Left hip replaced 2011 Hysterectomy 2010 Hospitalization History Reason Date(Month/Year) as related to above section
--- OUTSIDE RECORDS SUMMARY | 2025-03-30 10:02 | XMS_ITS | Clinical Summary ---
Author Organization [facility] Address [address] [place] [address] Care Team Providers Care Cyanide Furnace Operator Name Role Phone Unavailable Primary Care Provider Unavailabl e Source Comments Patient records contain information from all sites at [facility]. For routine questions regarding patient records, call [phone] during business hours, M-F 8:00 AM - 5:00 PM Central Time. Record requests for emergency care only can be directed to [phone] at any time.[facility] Allergies No known active allergies Medications acetaminophen (TylenoL) 500 mg tablet Take 1,000 mg by mouth. [address] tablet Take 81 mg by mouth. 3 Active atorvastatin (Lipitor) 40 mg tablet 5 Active B complex-vitamin C (Superplex-T) per tablet Take 1 tablet by mouth daily. Active bimatoprost (Lumigan) 0.01 % ophthalmic drops Administer 1 drop into both eyes at bedtime. 9 Active calcium carbonate (Tums) 500 mg (200 mg calcium) chewable tablet Chew 500 mg. A ctive calcium carbonate 1,500 mg (600 mg calcium) tablet Take 600 mg of calcium by mouth daily. Active cholecalciferol , vitamin D3, 25 mcg (1,000 Unit) tablet Take 25 mcg by mouth. Active lisinopril-hydr oCHLOROthiazide 10-12.5 mg per tablet Take 1 tablet by mouth daily. Active traZODone (DesyreL) 100 mg tablet Take 100 mg by mouth. Active Encounters Date Type Department Care Team Description 03/15/2025 9:30 AM CDT Comprehensive Visit Department of Rehabilitation Services in [address] [place] [address] Roly Saenz D.O. Annie Barragan P.T., D.P.T. Primary Osteoarthritis Lumbar Spine; Pain Low Back Chronic; Other Idiopathic Scoliosis Lumbar Region 03/09/2025 11:00 AM CDT Comprehensive Visit Department of Physical Medicine and Rehabilitation in [place], [place] [address] [place] [address] Roly Saenz D.O. Primary Osteoarthritis Lumbar Spine (Primary Dx); Pain Low Back Chronic; Other Idiopathic Scoliosis Lumbar Region Discharge Disposition: Home or Self Care 03/06/2025 Clinical Communication Department of Physical Medicine and Rehabilitation in [place], [place] [address] [place] [phone] Sheri Varner R.N. Referral (Spine triage ) from Last 3 Months Social History Tobacco Use Types Packs/Day Years [...] things needed for daily living? No 03/09/2025 [facility] Utilities Answer Date Recorded In the past 12 months has [facility] electric, gas, oil, or water company threatened to shut off services in your home? No 03/09/2025 Housing Stability Answer Date Recorded What is your living situation today? I have a [facility] place to live 03/09/2025 Comments Unknown Sex and Gender Information Value Date Recorded Sex Assigned at Female 03/09/2025 7:01 AM CDT Legal Sex Female 11:28 AM CDT Gender Identity Female 03/09/2025 7:01 AM CDT Sexual Orientation Straight 03/09/2025 7: 01 AM CDT Plan of Treatment Upcoming Encounters Date Type Department Care Team (Latest Contact Info) Description 04/02/2025 10:30 AM CDT Clinical Support Department of Rehabilitation Services in [address] [phone] Roly Saenz D.OVipul [address] [place] [phone] Annie Barragan P.T., D.P.T. 05/25/2025 9:00 AM ELECTRICAL FOREMAN Comprehensive Visit Department of Physical Medicine and Rehabilitation in [address] [address] Roly Saenz D.O. [address] [place] [phone] Discharge Disposition: Home or Self Care Health Maintenance Due Date Last Done Comments Bone Density Scan (Osteoporosis Screen) 1950 CT Colonography 1950 Cologuard 1950 Colonoscopy 1950 Colorectal Cancer Screening 1950 Creatinine Level (Kidney Function Test) 1950 FIT 1950 Fasting Glucose for Diabetes Screening 1950 Hepatitis C Screening 1950 Potassium Level 1950 Sodium Level 1950 Mammogram 12/28/2020 12/29/2019, 12/17, 12/23/2018, Additional history exists Depression Screening (Annual PHQ-2) 07/19/2024 COVID-19 Vaccine ( season) 2025 Influenza Vaccine (#1) 2025 9, 04/28/2019, 10/03/2015, Additional history exists DTaP,Tdap,and Td Vaccines (3 - Td or Tdap) 03/04/2032 03/04/2022, 04/07/2011 Pneumococcal vaccine (50+ years) Completed 01/18/2018, 03/03/2016 Zoster Vaccines Completed 07/18/2019, 04/18, 04/28/2019, Additional history exists Fall Risk Screen (Annual) Completed 03/09/2025 IPV Vaccines Aged Out No longer eligi ble based on patient's age to complete this topic Insurance MEDICA GEOFFREY BERNARDO [id number]
--- OUTSIDE RECORDS SUMMARY | 2025-03-30 10:02 | XMS_ITS | Clinical Summary ---
Author Organization [facility] Address [address] [place] [address] Care Team Providers Care Sales Service Rep Name Role Phone Md, Not Listed Primary Care Provider Unavailabl e Md, Not Listed Unavailable Unavailable Allergies No known active allergies Medications calcium carbonate (TUMS) 200 mg calcium (500 mg) oral chew tab Chew 1 tablet (500 mg) three times a day as needed. Active traZODone (DESYREL) 100 mg oral tablet Take 1 tablet (100 mg) by mouth at bedtime as needed. Active lisinopril-hydr ochlorothiazide 10-12.5 mg oral tablet Take 1 tablet by mouth once daily. Active cholecalciferol , Vitamin D3, 1,000 unit oral tablet Take 1 tablet (25 mcg) by mouth once daily. Active LUMIGAN 0.01 % Opht ophthalmic (EYE) solution Instill 1 drop into EACH eye at bedtime. 05/31/2019 Active simvastatin (ZOCOR) 20 mg oral tablet Take 1 tablet (20 mg) by mouth at bedtime. 05/28/2019 Active calcium carbonate, 600 mg elemental calcium, 600 mg calcium (1,500 mg) oral tablet Take 1 tablet by mouth once daily. Active B-Complex with Vitamin C oral Tab Take 1 tablet by mouth once daily. Active aspirin 81 mg oral enteric coated tablet Take 1 tablet (81 mg) by mouth twice a day. 84 tablet 10/21/2022 11:38 AM CDT 10/20/2022 Active docusate sodium (COLACE) 100 mg oral capsule Take 1 capsule (100 mg) by mouth twice a day. 21 capsule 10/21/2022 11:38 AM CDT 10/20/2022 Active ondansetron (ZOFRAN) 4 mg oral tablet Take 1 tablet (4 mg) by mouth every 8 (eight) hours as needed for nausea. 10 tablet 10/20/2022 Active acetaminophen (TYLENOL EXTRA STRENGTH) 500 mg oral tablet Take 2 tablets (1,000 mg) by mouth every 6 (six) hours as needed. 42 tablet 10/21/2022 11:38 AM CDT 10/20/2022 Active oxyCODONE, immediate release, (ROXICODONE) 5 mg oral tablet Take 1 tablet (5 mg) by mouth every 4 (four) hours as needed. 20 tablet 10/21/2022 11:38 AM CDT 10/20/2022 Active hydrOXYzine pamoate (VISTARIL) 25 mg oral capsule Take 1-2 capsules (25-50 mg) by mouth every four (4) to six (6) hours as needed. 24 capsule 10/21/2022 11:38 AM CDT 10/21/2022 Active Active Problems Problem Noted Date Diagnosed Date S/P total right hip arthroplasty 10/20/2022 Screening 06/15/2016 HTN (hypertension) 08/02/2009 Anemia due to acute blood loss 08/02/2009 Osteoarthritis of hip 08/01/2009 Overview (08/01/2009): S/p (L) CARLOS per Dr. Claire on 08/01/2009 Family history of ischemic heart disease 005 Need for prophylactic hormon e replacement therapy (postmenopausal) 12/28/2000 Unspecified essential hypertension 07/19/1995 Immunizations Immunization Administration Dates Next Due Influenza recombinant (FluBlok Quadrivalent PF) 05/02/2002 Td adult absorbed PF (2 Lf) 05/02/2002 Family History Medical History Relation Comments Breast Cancer Mother Other Disease Mother healthy Relation Status Comments Father Mother Alive Social History Tobacco Use Types Packs/Day Years Used Date Smoking Tobacco: Former Smokeless Tobacco: Never Tobacco Cessation:Counseling Given: Not Answered Comments:Quit 30 yrs Alcohol Use Standard Drinks/Week Comments Yes 0 (1 standard drink = 0.6 oz pur e alcohol) occasionally 1-2 x per month Comments No Sex and Gender Information Value Date Recorded Sex Assigned at Not on file Legal Sex Female 4:11 AM CDT Gender Identity Not on file Sexual Orientation Not on file Last Filed Vital Signs Vital Sign Reading Time Taken Comments Blood Pressure 117/59 10/21/2022 10:24 AM CDT Pulse 70 10/21/2022 10:24 AM CDT Temperature 36.6 C (97.9 F) 10/21/2022 10:24 AM CDT Respiratory Rate 18 10/21/2022 10:24 AM CDT Oxygen Saturation 96% 10/21/2022 10:24 AM CDT Inhaled Oxygen Concentration - - Weight 89.5 kg (197 lb 4.8 oz) 10/20/2022 1:01 P M CDT Height 165.1 cm (5' 5) 10/20/2022 1:01 PM CDT Body Mass Index 32.83 10/20/2022 1:01 PM CDT Plan of Treatment Health Maintenance Due Date Last Done Comments Hepatitis C Screening 1950 Depression Assessment (PHQ-2) 11/27/1951 Osteoporosis Screening 03/16/2018 03/16/2016, 2010 Mammogram Screening 12/28/2021 12/29/2019, 12/23/2018, 11/02/2017, Additional history exists Yearly Review of HCD 09/30/2023 09/30/2022 COVID-19 Vaccine ( season) 2025 Influenza Vaccine (#1) 2025 9, 04/28/2019, 10/03/2015, Additional history exists RSV Vaccines (1 - 1-dose 75+ series) 2025 Colonoscopy 06/17/2026 06/17/2016 Adult Tetanus Booster 03/04/2032 03/04/2022 , 04/07/2011, 05/02/2002 Pneumococcal 50+ Years Completed 01/18/2018, 2015 Zoster Vaccine Completed 07/18/2019, 04/18, 04/28/2019, Additional history exists Meningococcal B Vaccine Aged Out No l onger eligible based on patient's age to complete this topic Medical Devices Implanted Type Area Traffic Investigator Device Identifier Shelf Expiration Date Model / Serial / Lot Fm Hd Crmc 36/+8.5 1365-36-330 - [id number] Implanted:Qty : 1 on 10/20/2022 by Edin Stevenson MD at [facility] Head Right: Hip Dany & Dany [id number] 08/18/2027 1365-36-330 / / [id number] [place] H J&J Elmntr 124 - [id number] Implanted:Qty : 1 on 08/01/2009 at [facility] Mesh/patc h Left: Hip Dany [employer] Dany 05/19/2019 1246--000 / / [id number] Log [id number] - Set: Synthes Screws Med Cannulated 4.5mm Ins/Imp* - 1 - Scr Cnn 07/21 4.5/36 214.536 Implanted:Qty : 1 on 07/08/2011 at [facility] Screw/Anc hor Left: Knee Synthes 214.536 / / Log [id number] - Set: Synthes Screws Med Cannulated 4.5mm Ins/Imp* - 1 - Scr Cnn 07/21 4.5/44 214.544 Implanted:Qty : 1 on 07/08/2011 at [facility] Screw/Anc hor Left: Knee Synthes 214.544 / / Stem Actis Std Size 6 - [id number] Implanted:Qty : 1 on 10/20/2022 by Edin Stevenson MD at [facility] Stem Right: Hip De[employer] [id number] 09/15/2032 1010-11-060 / / [id number] Liner J&J Nt 52/36 1221-36-052 - [id number] Implanted:Qty : 1 on 10/20/2022 by Edin Stevenson MD at [facility] Supply Right: Hip Dany [employer] Dany [id number] 07/18/2027 [id number] / / [id number] Log [id number] - Set: Depuy/J&J Total Hip X 5 Trays Ins - 1 - Lnr J&J [id number] 1223-71-972 Implanted:Qty : 1 on 08/01/2009 at [facility] Total joint Left: Hip Dany [employer] Dany 06/18/2014 [id number] / / [id number] Log [id number] - Set: Depuy/J&J Total Hip X 5 Trays Ins - 1 - [id number] /Ft 4 Implanted:Qty : 1 on 08/01/2009 at [facility] Total joint Left: Femur Dany [employer] Dany 11/16/2010 / / [id number] Screw J&J 35 1217-35-500 - [id number] Implanted:Qty : 1 on 08/01/2009 at [facility] Total joint Left: Hip Dany [employer] Dany 03/19/2019 1217-35-500 / / [id number] Fem Hd J&J 36/+5.0 1365-52-000 - [id number] Implanted:Qty : 1 on 08/01/2009 at [facility] Total joint Left: Hip Dany [employer] Dany 04/18/2013 1365-52-000 / / [id number] Cup J[employer]J Sector [address] [place] [address]-22-052 - [id number] Implanted:Qty : 1 on 08/01/2009 at [facility] Total joint Left: Hip Dany [employer] Dany 06/18/2019 1217-22-052 / / [id number] Cup J&J Sector [address] [place], [place] 169[address]22-052 - [id number] Implanted:Qty : 1 on 10/20/2022 by Edin Stevenson MD at [facility] Total joint Right: Hip Dany & Dany [id number] 06/17/2032 [facility]7-22-052 / / [id number] Screw J&J [facility]7-35-500 - [id number] Implanted:Qty : 1 on 10/20/2022 by Edin Stevenson MD at [facility] Total joint Right: Hip Dany & Dany [id number] 07/18/2032 [facility]7-35-500 / / [id number] Explanted Type Area Traffic Investigator Device Identifier Shelf Expiration Date Model / Serial / Lot Log [id number] - Set: Synthes Screws Med Cannulated 4.5mm Ins/Imp* - 1 - Scr Cnn 07/21 4.5/34 214.534 Explanted:Qty: 1 at [facility] Screw/Anc hor Left: Knee Synthes 214.534 / / Log [id number] - Set: Synthes Screws Med Cannulated 4.5mm Ins/Imp* - 1 - Scr Cnn 07/21 4.5 214.524 Explanted:Qty: 1 at [facility] Screw/Anc hor Left: Knee Synthes 214.524 / / Procedures Procedure Name Priority Date/Time Associated Diagnosis Comments MAMMO PRAMOD SCREENING BI Routine 12/29/2019 2:51 PM CDT Breast cancer screening, high risk patient ASC COLONOSOPY Routine 06/17/2016 11:00 AM DIRECTOR OF PHYSICAL THERAPY XR BONE DENSITY-SPINE & HIP Routine 03/16/2016 1:22 PM CDT Osteopenia from Last 3 Months or Most Recently Relevant to Health Maintenance Results * MAMMO PRAMOD SCREENING BI (12/29/2019 2:51 PM CDT) Anatomical Region Laterality Modality Breast Bilateral Mammography 12/29/2019 2:56 PM CDT Impressions 12/29/2019 2:59 PM CDT IMPRESSION: No evidence of malignancy. FOLLOW-UP RECOMMENDATION: A screening mammogram in 1 year BIRADS: BIRADS 2 - Benign Findings REPORT SIGNED BY DR. Hiro Contreras Narrative 12/29/2019 2:59 PM CDT EXAM: BILATERAL DIGITAL SCREENING MAMMOGRAMS WITH CAD AND TOMOSYNTHESIS DATE: 12/29/2019 2:43 PM CLINICAL: Routine. COMPARISON: Multiple prior exams dating back to May 2014, the most recent December 2018. TECHNIQUE: Craniocaudal and MLO digital mammograms of both breasts, using tomosynthesis, also evaluated with computer-aided detection (CAD) software. FINDINGS: BREAST DENSITY: Heterogeneously dense No spiculated mass, calcifications of concern, or architectural distortion. Scattered benign calcifications bilaterally. Procedure Note Hiro Contreras MD - 12/29/2019 EXAM: BILATERAL DIGITAL SCREENING MAMMOGRAMS WITH CAD AND TOMOSYNTHESIS DATE: 12/29/2019 2:43 PM CLINICAL: Routine. COMPARISON: Multiple prior exams dating back to May 2014, the mostrecent December 2018. TECHNIQUE: Craniocaudal and MLO digital mammograms of both breasts, usingtomosynthesis, also evaluated with computer-aided detection (CAD)software. FINDINGS: BREAST DENSITY: Heterogeneously dense No spiculated mass, calcifications of concern, or architecturaldistortion. Scattered benign calcifications bilaterally. IMPRESSION IMPRESSION: No evidence of malignancy. FOLLOW-UP RECOMMENDATION: A screening mammogram in 1 year BIRADS: BIRADS 2 - Benign Findings REPORT SIGNED BY DR. Hiro Contreras us Anu Gandhi MD MAMMO ORDERABLE Final Resu lt * ASC Colonoscopy (06/17/2016 11:00 AM DIRECTOR OF PHYSICAL THERAPY) 06/17/2016 11:0 0 AM DIRECTOR OF PHYSICAL THERAPY Narrative TEST - 06/17/2016 12:02 PM DIRECTOR OF PHYSICAL THERAPY [facility] Patient Name: Anamaria Renteria Procedure Date: 06/17/2016 11:00 AM Date of : 1950 Note Status: Finalized Attending MD: OBED ALVAREZ MD Procedure: Colonoscopy Indications: Screening for colorectal malignant neoplasm Patient Profile: Last Colonoscopy: 10 years ago. Providers: OBED ALVAREZ MD, MICHAEL LEWIS RN Referring MD: Medicines: Fentanyl 100 micrograms IV, Midazolam 3.5 mg IV, Zofran 4 mg IV Complications: No immediate complications. Procedure: Pre-Anesthesia Assessment: - Prior to the procedure, a History and Physical was performed, and patient medications and allergies were reviewed. The patient's tolerance of previous anesthesia was also reviewed. The risks and benefits of the procedure and the sedation options and risks were discussed with the patient. All questions were answered, and informed consent was obtained. Prior Anticoagulants: The patient has taken aspirin. ASA Grade Assessment: II - A patient with mild systemic disease. After reviewing the risks and benefits, the patient was deemed in satisfactory condition to undergo the procedure. - Prior to the procedure, a History and Physical was performed, and patient medications, allergies and sensitivities were reviewed. The patient's tolerance of previous anesthesia was reviewed. - The risks and benefits of the procedure and the sedation options and risks were discussed with the patient. All questions were answered and informed consent was obtained. - Abdominal Examination: bowel sounds present, abdomen soft and non-tender, no masses or organomegaly noted. - CV Examination: normal. - Mental Status Examination: alert and oriented. - Respiratory Examination: Normal respiratory. - Prophylactic Antibiotics: The patient does not require prophylactic antibiotics. - After reviewing the risks and benefits, the patient was deemed in satisfactory condition to undergo the procedure. - The anesthesia plan was to use moderate sedation/analgesia (conscious sedation). - This assessment was completed at 11:30 AM, prior to the administration of sedation. After I obtained informed consent, the scope was passed under direct vision. Throughout the procedure, the patient's blood pressure, pulse, and oxygen saturations were monitored continuously. The Colonoscope was introduced through the anus and advanced to the terminal ileum, with identification of the appendiceal orifice and IC valve. The terminal ileum, ileocecal valve, appendiceal orifice, and rectum were photographed. The entire colon was examined. The colonoscopy was performed without difficulty. The patient tolerated the procedure well. The quality of the bowel preparation was adequate. Findings: The perianal exam findings include small non-thrombosed external hemorrhoids. The digital rectal exam was normal. Non-bleeding internal hemorrhoids were found during retroflexion. The hemorrhoids were small. Scattered medium-mouthed diverticula were found in the sigmoid colon, in the descending colon and at the splenic flexure. The exam was otherwise normal throughout the examined colon. The terminal ileum appeared normal. Impression: - Non-thrombosed external hemorrhoids found on perianal exam. - Non-bleeding internal hemorrhoids. - Diverticulosis in the sigmoid colon, in the descending colon and at the splenic flexure. - The examined portion of the ileum was normal. - No specimens collected. Recommendation: - Discharge patient to home (ambulatory). - Written discharge instructions were provided to the patient. - Repeat colonoscopy in 10 years for screening purposes. - Return to referring physician PRN. MD OBED Yañez MD 06/17/2016 12:02:30 PM This report has been signed electronically.OBED ALVAREZ MD Number of Addenda: 0 Note Initiated On: 06/17/2016 11:00 AM [id number] [address], [address], [place] [address] Procedure Note Obed Alvarez MD - 06/17/2016 [facility] Patient Name: Anamaria Renteria Procedure Date: 06/17/2016 11:00 AM Date of : 1950 Note Status: Finalized Attending MD: OBED ALVAREZ MD Procedure: Colonoscopy Indications: Screening for colorectal malignant neoplasm Patient Profile: Last Colonoscopy: 10 years ago. Providers: OBED ALVAREZ MD, MICHAEL LEWIS RN Referring MD: Medicines: Fentanyl 100 micrograms IV, Midazolam 3.5 mg IV, Zofran 4 mg IV Complications: No immediate complications. Procedure: Pre-Anesthesia Assessment: - Prior to the procedure, a History and Physical was performed, and patient medications and allergies were reviewed. The patient'stolerance of previous anesthesia was also reviewed. The risks and benefits ofthe procedure and the sedation options and risks were discussed with the patient. All questions were answered, and informed consent wasobtained. Prior Anticoagulants: The patient has taken aspirin. ASA Grade Assessment: II - A patient with mild systemic disease. Afterreviewing the risks and benefits, the patient was deemed in satisfactorycondition to undergo the procedure. - Prior to the procedure, a History and Physical was performed, and patient medications, allergies and sensitivities were reviewed. The patient's tolerance of previous anesthesia was reviewed. - The risks and benefits of the procedure and the sedation optionsand risks were discussed with the patient. All questions were answeredand informed consent was obtained. - Abdominal Examination: bowel sounds present, abdomen soft and non-tender, no masses or organomegaly noted. - CV Examination: normal. - Mental Status Examination: alert and oriented. - Respiratory Examination: Normal respiratory. - Prophylactic Antibiotics: The patient does not require prophylactic antibiotics. - After reviewing the risks and benefits, the patient was deemed in satisfactory condition to undergo the procedure. - The anesthesia plan was to use moderate sedation/analgesia(conscious sedation). - This assessment was completed at 11:30 AM, prior to theadministration of sedation. After I obtained informed consent, the scope was passed under direct vision. Throughout the procedure, the patient's blood pressure,pulse, and oxygen saturations were monitored continuously. The Colonoscopewas introduced through the anus and advanced to the terminal ileum, with identification of the appendiceal orifice and IC valve. The terminal ileum, ileocecal valve, appendiceal orifice, and rectum were photographed. The entire colon was examined. The colonoscopy was performed without difficulty. The patient tolerated the procedurewell. The quality of the bowel preparation was adequate. Findings: The perianal exam findings include small non-thrombosed external hemorrhoids. The digital rectal exam was normal. Non-bleeding internal hemorrhoids were found during retroflexion. The hemorrhoids were small. Scattered medium-mouthed diverticula were found in the sigmoid colon,in the descending colon and at the splenic flexure. The exam was otherwise normal throughout the examined colon. The terminal ileum appeared normal. Impression: - Non-thrombosed external hemorrhoids found on perianal exam. - Non-bleeding internal hemorrhoids. - Diverticulosis in the sigmoid colon, in the descending colon and at the splenic flexure. - The examined portion of the ileum was normal. - No specimens collected. Recommendation: - Discharge patient to home (ambulatory). - Written discharge instructions were provided to the patient. - Repeat colonoscopy in 10 years for screening purposes. - Return to referring physician PRN. MD OBED Yañez MD 06/17/2016 12:02:30 PM This report has been signed electronically.OBED ALVAREZ MD Number of Addenda: 0 Note Initiated On: 06/17/2016 11:00 AM [id number] [address], [address], [place] [address] us Obed Alvarez MD PROCEDURE ORDERABLE Final Resul t TEST * XR BONE DENSITY-SPINE & HIP (03/16/2016 1:22 PM CDT) Anatomical Region Laterality Modality Extremity Computed Radiogr aphy 03/16/2016 1:22 PM CDT Impressions 03/16/2016 1:25 PM CDT IMPRESSION: Osteopenia. Compared to the previous study which utilized different scanning technique, there is suggestion of a 6.4% decrease in bone mineral density within the proximal right femur and 5.5% decrease within the lumbar spine. WHO Classification of bone density for women, and men over 50 years of age, is as follows: Normal bone density: T score at or greater than -1.0. Osteopenia (Low bone density): T score between -1.0 and -2.5. Osteoporosis: T score at or less than -2.5. Narrative 03/16/2016 1:25 PM CDT EXAM: DEXA Bone Density Study DATE: 03/16/2016 1:02 PM COMPARISON: 06/18/11 CLINICAL DATA: Osteoporosis screening. Post-menopausal. TECHNIQUE: A bone density evaluation using DEXA (dual energy x-ray absorptiometry) was performed for your patient at the [facility] in [place] using a Hologic (Discovery) unit. FINDINGS: Lumbar Spine: Average BMD (g/cm2): 0.878 T-score: -1.3 Z-score: 0.5 Right Femoral Neck: Average BMD (g/cm2): 0.742 T-score: -1.0 Z-score: 0.6 Right Hip Total: Average BMD (g/cm2): 0.740 T-score: -1.7 Z-score: -0.4 Vertebral assessment: frontal and lateral scanograms demonstrate no gross compression deformities in visualized portions of the thoracic and lumbar spine. FRAX (10-year Fracture Risk calculated for an untreated patient): the risks of a major osteoporotic fracture and a hip fracture are 7.8% and 0.6%, respectively. Procedure Note Mane Funes MD - 03/16/2016 EXAM: DEXA Bone Density Study DATE: 03/16/2016 1:02 PM COMPARISON: 06/18/11 CLINICAL DATA: Osteoporosis screening. Post-menopausal. TECHNIQUE: A bone density evaluation using DEXA (dual energy x- rayabsorptiometry) was performed for your patient at the [facility] in [place] using a Hologic (Discovery) unit. FINDINGS: Lumbar Spine: Average BMD (g/cm2): 0.878 T-score: -1.3 Z-score: 0.5 Right Femoral Neck: Average BMD (g/cm2): 0.742 T-score: -1.0 Z-score: 0.6 Right Hip Total: Average BMD (g/cm2): 0.740 T-score: -1.7 Z-score: -0.4 Vertebral assessment: frontal and lateral scanograms demonstrate no grosscompression deformities in visualized portions of the thoracic and lumbarspine. FRAX (10-year Fracture Risk calculated for an untreated patient): therisks of a major osteoporotic fracture and a hip fracture are 7.8% and0.6%, respectively. IMPRESSION IMPRESSION: Osteopenia. Compared to the previous study which utilized differentscanning technique, there is suggestion of a 6.4% decrease in bone mineraldensity within the proximal right femur and 5.5% decrease within thelumbar spine. WHO Classification of bone density for women, and men over 50 years ofage, is as follows: Normal bone density: T score at or greater than -1.0. Osteopenia (Low bone density): T score between -1.0 and -2.5. Osteoporosis: T score at or less than -2.5. us Anu Gandhi MD XRAY ORDERABLE Final Resu lt from Last 3 Months or Most Recently Relevant to Health Maintenance Insurance [employer] MEDICARE ADVANTAGE SOLUTION EDGE Z_MEDICA CHOICE CLASSIC [facility] [place] [address] [facility] MEDICARE ADVANTAGE SOLUTION EDGE Advance Directives For more information, please contact: [phone] Documents on File Type Date Recorded Patient Safety Spec Expl anation HCD - Complete 02/27/2015 6:02 PM Health Care Directive 08/05/2009 Care Teams Sales Service Rep Relationship Specialty Start Date End Date Md, Not Listed no address PCP - General Internal Medicine 10/09/22 Md, Not Listed no address PCP - Primary Care Clinic Internal Medicine 10/09/22
[2025-03-30 10:12] VITALS: BP 170/83; PULSE 93; RESP 16; TEMP 36.9; O2SAT 96; BMI 32.0
[2025-03-30 10:21] LABS: Appearance Urine Clear (Clear)
--- NOTE | 2025-03-30 10:34 | ED.ABDPAIN ---
HPI - Abdominal Pain General Time Seen by Provider: 10:34 Date Seen: 03/30/25 Chief Complaint: Abdominal Pain Stated Complaint: Abdominal pain Time Seen by Provider: 03/30/25 10:31 Source: patient and RN notes reviewed Mode of arrival: ambulatory Limitations: no limitations History of Present Illness HPI narrative: This 74-year-old female was referred to us by urgent care after evaluation with lower abdominal pain and tenderness on examination. Patient has been having lower abdominal pain with left worse than right. There has been a low level of abdominal pain but she has been getting sharp waves of pain happening about 4-5 times an hour. She has had nausea and decreased appetite but no vomiting. She was able to eat cereal this morning at 8:00 a.m.. She has not had any fever, no vomiting, no urinary symptoms, no diarrhea. She had normal bowel movement this morning. Her last colonoscopy was 4 years ago, is due in 1 year. She is had hysterectomy and both ovaries removed, abdominoplasty. She has tried some Tylenol, does take the edge off. She has tried to avoid NSAIDs due to history of elevated liver enzymes. MD elicited complaint: abdominal pain Related Data Home Medications ?Medication ?Instructions ?Recorded ?Confirmed aspirin 81 mg tablet,delayed 81 mg PO 03/04/22 03/30/25 release calcium 600 mg (as 1 tab PO DAILY 03/04/22 03/30/25 carbonate)-vitamin D3 10 mcg (400 unit) tablet cholecalciferol (vitamin D3) 25 25 mcg PO QDAY 03/04/22 03/30/25 mcg (1,000 unit) capsule latanoprost 0.005 % eye drops drp ophthalmic (eye) 02/14/25 03/30/25 Previous Rx's ?Medication ?Instructions ?Recorded atorvastatin 40 mg tablet 40 mg PO QDAY #90 tabs 02/14/25 lisinopril 10 1 tab PO DAILY #90 tabs 02/14/25 mg-hydrochlorothiazide 12.5 mg tablet trazodone 50 mg tablet 100 mg (2 x 50 mg) PO QHS #180 tabs 02/14/25 amoxicillin 875 mg-potassium 1 tab PO BID #20 tabs 03/30/25 clavulanate 125 mg tablet Allergies Allergy/AdvReac Type Severity Reaction Status Date / Time No Known Allergies Allergy Verified 03/30/25 11:41 Review of Systems Status of ROS Reports: 6 or more systems reviewed and unremarkable except as noted in History and below [facility] Medical History Shoulder pain, right ?M25.511 - Pain in right shoulder (ICD-10) Screening for diabetes mellitus ?Z13.1 - Encounter for screening for diabetes mellitus (ICD-10) Elevated transaminase level ?R74.01 - Elevation of levels of liver transaminase levels (ICD-10) Lacunar infarction ?I63.81 - Other cerebral infarction due to occlusion or stenosis of small artery (ICD-10) Low bone density ?M85.9 - Disorder of bone density and structure, unspecified (ICD-10) Pre-op exam ?Z01.818 - Encounter for other preprocedural examination (ICD-10) Aspirin long-term use ?Z79.82 - senior care (current) use of aspirin (ICD-10) Surgical History Status post total abdominal hysterectomy and bilateral salpingo-oophorectomy ?Z90.710 - Acquired absence of both cervix and uterus (ICD-10) ?Z90.722 - Acquired absence of ovaries, bilateral (ICD-10) ?Z90.79 - Acquired absence of other genital organ(s) (ICD-10) History of right breast biopsy ?Z98.890 - Other specified postprocedural states (ICD-10) History of left knee surgery ?Z98.890 - Other specified postprocedural states (ICD-10) History of left hip replacement ?Z96.642 - Presence of left artificial hip joint (ICD-10) History of abdominoplasty ?Z98.890 - Other specified postprocedural states (ICD-10) Family History Mother Breast cancer Father Coronary artery disease Sister Rheumatoid arthritis ALS (amyotrophic lateral sclerosis) Social History Narrative: etoh 1-2 /month walks for exercise, , 7 grandchildren, What is your current living situation?: I presently have a place to live Problems where you live: no known problems In the past 12 months, utilities in danger of being shut off: no In past 12 months, lack of transportation kept you from medical appts, meetings, work, or getting things needed for daily living: no In the past 12 mos, have been you worried that your food would run out before you had money to buy more?: never true In the past 12 mos, the food you bought just didn't last and you didn't have money to buy more?: never true Smoking Status: Former smoker Do you use any of these nicotine containing products: None How often do you have a drink containing alcohol: never How often do you have six or more drinks on one occasion: Never AUDIT-C Alcohol total score: 0 Non-prescribed substance use: denies use Are you now , , , , never or living with a partner: Social isolation score (0-1 are the most socially isolated patients): 1 How often does anyone, including family, friends and others, physically hurt you: never How often does anyone, including family, friends and others, insult or talk down to you: never How often does anyone, including family, friends and others, threaten you with harm: never How often does anyone, including family, friends and others, scream or curse at you: never Gender Identity: female Exam Const: Vital Signs, click to edit/add: Vital Signs - 24 hr 03/30/25 10:12 03/30/25 12:32 Temperature 98.4 F Pulse Rate [Pulse Oximeter] 93 89 Respiratory Rate 16 16 Blood Pressure [Ri ght Upper Arm] 170/83 H 135/70 Pulse Oximetry 96 96 Oxygen Delivery Me thod Room Air Room Air This 74-year-old female is alert, interactive, no apparent distress. Sitting up on the bed. She is able to lie flat but does seem to have some discomfort with position changes. Sclera clear, extraocular muscles intact. Symmetrical facial function. Neck supple, no jugular venous distension noted. Lungs are clear, good air entry, no wheezing or crackles, no tachypnea, no accessory muscle use. CV regular rate and rhythm, no murmur. Abdomen is soft, does not appear distended. I do not hear any bowel sounds will listening for about 30 seconds. She has left lower quadrant tenderness without any true rebound or guarding but certainly is tender when I palpate. I do not feeling any definitive masses or organomegaly. Documenting provider has reviewed patient's vital signs: yes Course Course ED Course: Patient certainly could have partial bowel obstruction, diverticulitis. Does not seem to be consistent with any urinary system disease. We will proceed with CT imaging of her abdomen pelvis to further identify any underlying pathology. She will have an IV placed, will obtain blood work. She understands we need to wait for her creatinine. Our last creatinine in her chart was from February 14 showing a creatinine of 0.7 but an estimated creatinine clearance of 44.41. Will await her creatinine today prior to obtaining imaging with IV contrast. She understands that we prefer to do this with IV contrast for best visualization but need to ensure kidney function will tolerate this. She declines anything for need for pain management at this time. Reevaluation(s) Time of Reevaluation #1: 12:28 Reevaluation #1: Did review patient's CT imaging and reviewed diverticulitis with her. She is happy to know that we have a source of her pain. Will give her a dose of IV antibiotics here, probable discharge for trial of outpatient management. Time of Reevaluation #2: 13:46 Reevaluation #2: Patient has completed her antibiotics, actually she tolerated a sandwich. We did discuss may be limiting diet for a day or 2 but if she is tolerating orals fine, she can neglect this part of my discharge recommendations. Questions answered, will plan for trial of outpatient treatment with Augmentin. Vital Signs Vital signs: Initial Vital Signs Temperature 98.4 F 03/30/25 10:12 Temperature Source Temporal Artery Scan 03/30/25 10:12 Pulse Rate 93 03/30/25 10:12 Pulse Rhythm Regular 03/30/25 10:12 Respiratory Rate 16 03/30/25 10:12 Blood Pressure 170/83 H 03/30/25 10:12 Blood Pressure Mean 112 H 03/30/25 10:12 Blood Pressure Position Sitting 03/30/25 10:12 Pulse Oximetry 96 03/30/25 10:12 Oxygen Delivery Method Room Air 03/30/25 10:12 Vital Signs Temperature 98.4 F 03/30/25 10:12 Pulse Rate 93 03/30/25 10:12 Respiratory Rate 16 03/30/25 10:12 Blood Pressure 170/83 H 03/30/25 10:12 Pulse Oximetry 96 03/30/25 10:12 Oxygen Delivery Method Room Air 03/30/25 10:12 Temperature 98.4 F 03/30/25 10:12 Pulse Rate 89 03/30/25 12:32 Respiratory Rate 16 03/30/25 12:32 Blood Pressure 135/70 03/30/25 12:32 Pulse Oximetry 96 03/30/25 12:32 Oxygen Delivery Method Room Air 03/30/25 12:32 Medications Administered Medications: Discontinued Medications Generic Name Dose Route Start Last Admin Trade Name Freq PRN Reason Stop Dose Admin Piperacillin Sod/Tazobactam 100 mls @ 200 mls/hr 03/30/25 12:28 03/30/25 13:16 Sod 3.375 gm/ Sodium Chloride IVPB 03/30/25 12:29 Infused ONCE ONE Infusion MDM - Abdominal Pain Lab Data Attestation: I reviewed the patient's lab results. Labs: Lab Results 03/30/25 03/30/25 03/30/25 Range/Units 10:03 10:41 10:45 WBC 10.01 (4.50-11.00) K/uL RBC 4.33 (4.00-5.20) m/uL Hgb 13.1 (12.0-16.0) gm/dL Hct 40.1 (33.0-51.0) % MCV 93 (80-100) fL MCH 30 (26-34) pg MCHC 33 (32-36) gm/dL RDW Coeff of Sarah 14.0 (11.5-15.5) % Plt Count 248 (140-440) K/uL Neut % (Auto) 72.0 (42.0-72.0) % Lymph % (Auto) 16.9 L (20-44) % Kerr % (Auto) 9.8 (0.0-11.0) % Eos % (Auto) 0.7 (0.0-7.0) % Baso % (Auto) 0.4 (0.0-3.0) % Neut # (Auto) 7.21 H (1.7-7.0) K/uL Lymph # (Auto) 1.70 (0.90-2.90) K/uL Kerr # (Auto) 1.00 H (0.00-0.90) K/UL Eos # (Auto) 0.07 (0.00-0.50) K/uL Baso # (Auto) 0.04 (0.00-0.30) K/uL Abs Immat Gran (auto) 0.02 (0.00-0.30) K/uL Imm/Tot Granulo (auto) 0.2 % Sodium 134 L (135-149) mmol/L Potassium 3.6 (3.6-5.1) mmol/L Chloride 105 (96-114) mmol/L Carbon Dioxide 27 (20-32) mmol/L Anion Gap 2 L (7-15) mEq/L BUN 16 (7-30) mg/dL Creatinine 0.7 (0.5-1.5) mg/dL Estimated Creat Clear 44.41 Estimated GFR 91 ml/min Glucose 90 (60-115) mg/dL Lactate 0.6 (0.5-1.9) mmol/L Calcium 9.1 (8.4-10.6) mg/dL Total Bilirubin 0.6 (0.1-1.5) mg/dL AST 34 (12-35) U/L ALT 36 H (4-35) U/L Alkaline Phosphatase 59 (40-150) U/L C-Reactive Protein 8.8 H (0.5-1.0) mg/dL Total Protein 7.3 (6.0-8.3) g/dL Albumin 4.1 (3.3-5.0) g/dL Urine Color Light yellow (Yellow) Urine Appearance Clear (Clear) Urine pH 6.0 (5.0-8.5) Ur Specific [place] 1.010 (1.000-1.030) Urine Protein Negative (Negative) Urine Glucose (UA) Negative (Negative) Urine Ketones Negative (Negative) Urine Blood Trace-intact A (Negative) Urine Nitrite Negative (Negative) Urine Bilirubin Negative (Negative) Urine Urobilinogen 0.2 (0.2-1.0) Ur Leukocyte Esterase Negative (Negative) Urine RBC 0-2 (0-2) Urine WBC 0-2 (0-5) Ur Squamous Epith Cells None (None-Few) Urine Bacteria None (None) POC Creatinine 0.8 (0.6-1.3) mg/dl Imaging Data CT scan - abdomen: Attestation: I have reviewed the pertinent imaging results. Radiologist's impression: Patient: DHRUV WAGNER Facility:?[facility] Patient ID:?[id number] Site Patient ID:?[id number]. Site :?[id number] Study:?CT-Abdomen/Pelvis WITH 94 CC ISOVUE 370-03/30/2025 11:46:29 AM Ordering Physician:Renee Yung Final Report: INDICATION: Left lower quadrant abdominal pain. TECHNIQUE: CT abdomen and pelvis acquired with 94 cc Isovue 370 IV contrast. COMPARISON: None. FINDINGS: Lower chest: Minimal dependent atelectasis the Liver: Normal in size and attenuation. Few small hypodense liver lesions, largest in the right hepatic lobe is lobulated and measures 4.9 x 3.9 cm and is related to cyst. Other smaller lesions are too small to characterize. Gallbladder and bile ducts: No stones or inflammation. No biliary dilatation. Pancreas: No mass or inflammation. Spleen: Normal in size. No masses. Adrenal glands: No suspicious mass. Kidneys: Bilateral kidneys are normal in size with symmetric enhancement. No nephrolithiasis or hydronephrosis. Small exophytic cyst at the interpolar region of left kidney, likely cyst. GI tract: There is moderate pericolic fat stranding involving distal descending colon as well as sigmoid colon. Moderate periventricular fat stranding is seen. There is a wall thickening of the distal descending as well as sigmoid colon. No extraluminal in or intramural abscess to suspect perforation/complication. No bowel obstruction. Adjacent fascial thickening is seen. Inflamed bowel loop is lying underneath the anterior abdominal wall with fat stranding and inflammatory changes involving the rectus muscle. No drainable or loculated fluid collection. Vasculature: Abdominal aorta is normal in caliber. Mild atherosclerosis. Lymph nodes: No lymphadenopathy. Peritoneum/Abdominal Wall: No free air or significant free fluid. Hernia. Small fat containing umbilical Pelvis: Bilateral total hip arthroplasty with streak artifact limits detailed assessment. Urinary bladder is minimally distended. Bones: Bilateral total hip arthroplasty. Multilevel degenerative changes of the spine. IMPRESSION: 1. Findings are concerning for diverticulitis/colitis involving distal descending and sigmoid colon. No free air or loculated/drainable fluid collection or intramural abscess to suspect complication. 2. Few hypodense liver lesions, largest in the right hepatic lobe, is related to simple cyst. Please note that all CT scans at this facility use dose modulation, iterative reconstruction, and/or weight-based dosing when appropriate to reduce radiation dose to as low as reasonably achievable. Dictated by Eulalio Tavares MD @ 03/30/2025 12:22:29 PM (Electronic Signature) Discharge Plan Discharge Clinical Impression: Diverticulitis large intestine Qualifiers: Diverticulitis bleeding: without bleeding Diverticulitis complication: without perforation or abscess Qualified Code(s): K57.32 - Diverticulitis of large intestine without perforation or abscess without bleeding Patient Disposition: Home, Self-Care Condition: Stable Instructions: Diverticulitis (ED), Diverticulitis Diet (ED) Additional Instructions: Need to start oral antibiotic this evening, take as prescribed. Fine to use Tylenol 1000 mg 3 times a day for pain. Review the diverticulitis handout dietary recommendations. You will be on a low residue or low-fiber diet through this. Once your back to baseline and feeling better in a few weeks, can resume a traditional diet with better fiber in it. Need to schedule a follow-up with your primary care provider within the next week. In the meantime, if you are worsening with increasing abdominal pain, have vomiting, develop bloody stools, fever develops, do recommend re-evaluation in the ER to make sure that you are not worsening clinically. Push fluids the next few days. May want to go on a more softer liquid diet for the next day or 2 and tell you feel a bit better. 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
--- NOTE | 2025-03-30 10:39 | CRLHL7_ITS ---
For Patients: As a result of the Century Cures Act, medical imaging exams and procedure reports are released immediately into your electronic medical record. You may view this report before your referring provider. If you have questions, please contact your health care provider. INDICATION: Left lower quadrant abdominal pain. TECHNIQUE: CT abdomen and pelvis acquired with 94 cc Isovue 370 IV contrast. COMPARISON: None. FINDINGS: Lower chest: Minimal dependent atelectasis the Liver: Normal in size and attenuation. Few small hypodense liver lesions, largest in the right hepatic lobe is lobulated and measures 4.9 x 3.9 cm and is related to cyst. Other smaller lesions are too small to characterize. Gallbladder and bile ducts: No stones or inflammation. No biliary dilatation. Pancreas: No mass or inflammation. Spleen: Normal in size. No masses. Adrenal glands: No suspicious mass. Kidneys: Bilateral kidneys are normal in size with symmetric enhancement. No nephrolithiasis or hydronephrosis. Small exophytic cyst at the interpolar region of left kidney, likely cyst. GI tract: There is moderate pericolic fat stranding involving distal descending colon as well as sigmoid colon. Moderate periventricular fat stranding is seen. There is a wall thickening of the distal descending as well as sigmoid colon. No extraluminal in or intramural abscess to suspect perforation/complication. No bowel obstruction. Adjacent fascial thickening is seen. Inflamed bowel loop is lying underneath the anterior abdominal wall with fat stranding and inflammatory changes involving the rectus muscle. No drainable or loculated fluid collection. Vasculature: Abdominal aorta is normal in caliber. Mild atherosclerosis. Lymph nodes: No lymphadenopathy. Peritoneum/Abdominal Wall: No free air or significant free fluid. Hernia. Small fat containing umbilical Pelvis: Bilateral total hip arthroplasty with streak artifact limits detailed assessment. Urinary bladder is minimally distended. Bones: Bilateral total hip arthroplasty. Multilevel degenerative changes of the spine. IMPRESSION: 1. Findings are concerning for diverticulitis/colitis involving distal descending and sigmoid colon. No free air or loculated/drainable fluid collection or intramural abscess to suspect complication. 2. Few hypodense liver lesions, largest in the right hepatic lobe, is related to simple cyst. Please note that all CT scans at this facility use dose modulation, iterative reconstruction, and/or weight-based dosing when appropriate to reduce radiation dose to as low as reasonably achievable. Dictated by Eulalio Tavares MD @ 03/30/2025 12:22:29 PM (Electronically Signed)
[2025-03-30 10:55] LABS: Lactate* 0.6 mmol/L (0.5-1.9)
[2025-03-30 10:56] LABS: Hematocrit* 40.1 % (33.0-51.0); Hemoglobin* 13.1 gm/dL (12.0-16.0); Immature Granulocytes Abs Auto 0.02 K/uL (0.00-0.30); Immature Granulocytes Pct Auto 0.2 %; Mean Corpuscular HGB Conc 33 gm/dL (32-36); Mean Corpuscular Hemoglobin 30 pg (26-34); Mean Corpuscular Volume 93 fL (80-100); RDW Coefficient of Variation % 14.0 % (11.5-15.5); Red Blood Count* 4.33 m/uL (4.00-5.20); White Blood Count* 10.01 K/uL (4.50-11.00)
[2025-03-30 10:57] LABS: Lymphocytes Absolute Auto 1.70 K/uL (0.90-2.90); Slide Review Reflex No
[2025-03-30 11:04] LABS: Creatinine, Point-of-Care* 0.8 mg/dl (0.6-1.3)
[2025-03-30 11:13] LABS: Albumin* 4.1 g/dL (3.3-5.0); Chloride* 105 mmol/L (96-114); Sodium* 134 mmol/L (135-149)
[2025-03-30 11:14] LABS: Potassium* 3.6 mmol/L (3.6-5.1)
[2025-03-30 11:16] LABS: Alanine Aminotransferase* 36 U/L (4-35); Aspartate Amino Transferase* 34 U/L (12-35); Blood Urea Nitrogen* 16 mg/dL (7-30); Creatinine* 0.7 mg/dL (0.5-1.5); Est. Creatinine Clearance* 44.41; Estimated Glomerular Filt Rate 91 ml/min
[2025-03-30 11:17] LABS: Alkaline Phosphatase* 59 U/L (40-150); Anion Gap 2 mEq/L (7-15); Bilirubin Total* 0.6 mg/dL (0.1-1.5); Calcium* 9.1 mg/dL (8.4-10.6); Carbon Dioxide* 27 mmol/L (20-32); Glucose* 90 mg/dL (60-115); Total Protein* 7.3 g/dL (6.0-8.3)
[2025-03-30 12:32] VITALS: BP 135/70; PULSE 89; RESP 16; O2SAT 96
[2025-03-30] MEDS: PIPERACILLIN/TAZOBACTAM 3.375 GM in 0.9 % SODIUM CHLORIDE Mini-bag 100 ML IVPB (12:46)
== END 2025-03-30 13:52 | disposition home or self-care (01) ==
PROVIDERS: Emergency Provider Family Medicine
DX: K57.32 Diverticulitis of large intestine without perforation or abscess without bleeding (principal)
CPT/HCPCS: 36415; 74177; 80053; 81001; 82565; 83605; 85025; 86140; 96365; 99284; 99285; J2543; Q9967